=== PATIENT | male | born 1980 | race Caucasian/White ===

== ENCOUNTER 2021-06-16 20:44 | Inpatient (IN) | payer BC ==
[~2021-06-16] VITALS: Ht 195.6 cm; Wt 113.0 kg
[2021-06-16 22:53] LABS: BASO # 0.1 10^3/uL (0.0-0.2); BASO % 0.2 % (0.0-1.0); EOS % 0.1 % (0.0-3.0); HEMATOCRIT 50.1 % (42.0-52.0); HEMOGLOBIN 16.6 g/dl (13.5-17.5); LYMPH # 2.6 10^3/uL (1.5-5.0); MEAN CORPUSCULAR HEMOGLOBIN 29.3 pg (27.0-33.0); MEAN CORPUSCULAR HGB CONC 33.1 g/dl (32.0-36.5); MEAN CORPUSCULAR VOLUME 88.5 fl (80.0-96.0); MONO # 1.3 10^3/uL (0.0-0.8); MONO % 5.7 % (2.0-8.0); NEUTROPHILS # 19.5 10^3/uL (1.5-8.5); NEUTROPHILS % 82.3 % (36.0-66.0); PLATELET COUNT, AUTOMATED 224 10^3/uL (150-450); RED BLOOD COUNT 5.66 10^6/uL (4.30-6.10); WHITE BLOOD COUNT 23.6 10^3/uL (4.0-10.0)
[2021-06-16] MEDS ORDERED: NS 1,000 ML IV ONE ×2 (23:25→23:40)
[2021-06-16] MEDS ORDERED: ISOVUE-370 76% 100ML VIAL As Ordered ONE (23:26)
[2021-06-16 23:27] LABS: ALBUMIN 3.6 GM/DL (3.2-5.2); BILIRUBIN,DIRECT 0.5 MG/DL (0.0-0.2); BILIRUBIN,TOTAL 1.3 MG/DL (0.2-1.0); TOTAL PROTEIN 7.8 GM/DL (6.4-8.2)
[2021-06-16] MEDS ORDERED: PIPERACILLIN/TAZOBACTAM SOD 3.375 GM in D5W MINI-BAG PLUS 50 ML IV ONE (23:40)
[2021-06-16] MEDS ORDERED: MORPHINE 4 MG/ML 1ML VIAL/SYRINGE (J2270) IV ONE (23:45)
[2021-06-17] MEDS ORDERED: HOME MED LIST COMPLETE! XX SCH
--- NOTE | 2021-06-17 00:55 | REPVR ---
PROCEDURE INFORMATION: Exam: CT Abdomen And Pelvis With Contrast Exam date and time: 06/16/2021 11:22 PM Age: 41 years old Clinical indication: Abdominal pain; Localized; Lower; Additional info: Abd pain R/O appy TECHNIQUE: Imaging protocol: Computed tomography of the abdomen and pelvis with contrast. Radiation optimization: All CT scans at this facility use at least one of these dose optimization techniques: automated exposure control; mA and/or kV adjustment per patient size (includes targeted exams where dose is matched to clinical indication); or iterative reconstruction. Contrast material: ISO; Contrast volume: 100 ml; Contrast route: INTRAVENOUS (IV); COMPARISON: No relevant prior studies available. FINDINGS: Lungs: No suspicious mass or airspace process in the visualized lung bases. Liver: Liver is decreased in density, consistent with fatty infiltration. Gallbladder and bile ducts: Gallbladder is present and shows no evidence of gallstone. Pancreas: Pancreas appears normal. No focal mass or peripancreatic inflammation. Spleen: Spleen appears homogeneous without focal mass. Adrenal glands: Adrenal glands are normal in appearance. Kidneys and ureters: Kidneys appear normal, with no stone, solid mass or hydronephrosis. Stomach and bowel: Dilated left mid abdominal small bowel loops measure up to 3.6 cm in diameter without wall thickening. Adjacent mild mesenteric edema and tethering. No identifiable mass. Distal descending colon wall thickening, adjacent fat stranding and regional diverticula suggests acute diverticulitis with focal perforation evident by extraluminal air and adjacent stranding. No abscess Appendix: Normal caliber appendix is identified, with no adjacent inflammation. Intraperitoneal space: See "Stomach and bowel" finding. Vasculature: No aortic aneurysm. Main portal and splenic veins enhance normally. Lymph nodes: . No enlarged lymph nodes. Urinary bladder: Urinary bladder appears normal. Reproductive: No overt enlargement of the prostate gland. Bones/joints: Bony structures show no acute fracture or destructive process. Soft tissues: No concerning focal abnormality of the extra-abdominal and pelvic soft tissues. IMPRESSION: 1. Acute diverticulitis involving the distal descending colon with focal perforation but no abscess or obstruction. 2. Adjacent left lower quadrant mildly dilated small bowel loops which may be secondary inflammatory change from the perforated diverticulitis or could less likely be be a focal small bowel obstruction related to adhesions if the patient has had prior surgery. Electronically signed by: Jered Bolton On 06/17/2021 00:54:32 AM
[2021-06-17] MEDS ORDERED: LR 1,000 ML IV ONE (01:20)
--- NOTE | 2021-06-17 01:38 | HPEPDOC ---
[facility] Medical History & Physical Date of Admission Jun 17, 2021 Date of Service: Jun 17, 2021 Other Provider Rakan LEYVA Attending Physician: DIXON PLAZA MD History and Physical TIME OF SERVICE: 320am CHIEF COMPLAINT: abdominal pain HISTORY OF PRESENT ILLNESS: , a 41 yr old M, presented w c/o severe mid and lower abdominal pain that begun on Monday. The pain was associated with rectal pain that improved after having a BM. He denied having diarrhea or blood mixed with the stools but has had loose BMS. He also denied having a fever at home and has had chills. He had a similar episode of abdominal pain a few months ago that resolved on its own. He was sent to the hospital after being evaluated at an Urgent care center in [place]. CT of the abdomen revealed diverticulitis w perforation; Yoni Reese discussed these findings w who shaun mmended keeping the pt NPO. REVIEW OF SYSTEMS: 10-point review of systems negative except as listed in HPI PAST MEDICAL/ SURGICAL HISTORY: Tonsillectomy w adenoidectomy, unspecified dermatitis affecting the dorsal surface of the second digit. FAMILY HISTORY: he denied having any FMH SOCIAL HISTORY: he smokes, doesnt drink and doesnt use recreational drugs ALLERGIES: Please see below. HOME MEDICATIONS: Please see below. PHYSICAL EXAMINATION: Vital Signs Date Time Temp Pulse Resp B/P (MAP) Pulse Ox O2 Delivery O2 Flow Rate FiO2 06/16/21 20:45 100.1 138 16 140/79 (99) 96 Room Air GENERAL APPEARANCE: well-nourished and developed/ NAD HEENT: EOMI / MMM&P CARDIOVASCULAR: RRR/NMRG LUNGS: CTAB on RA ABDOMEN: contour convex/ no asher turners sign / no masses / soft & NT w light palpation MUSCULOSKELETAL: NCAT / RC x 4 extremities INTEGUMENT: he is not flushed or diaphoretic NEUROLOGICAL: CN 2-12 grossly intact / speech not dysarthric PSYCHIATRIC: A&O x 3 / able to understand and follow all commands LABORATORY DATA: Laboratory Tests 2 06/16/21 22:39: Immature Granulocyte % (Auto) 0.7, Neutrophils (%) (Auto) 82.3H, Lymphocytes (%) (Auto) 11.0L, Monocytes (%) (Auto) 5.7, Eosinophils (%) (Auto) 0.1, Basophils (%) (Auto) 0.2, Neutrophils # (Auto) 19.5H, Lymphocytes # (Auto) 2.6, Monocytes # (Auto) 1.3H, Eosinophils # (Auto) 0.0, Basophils # (Auto) 0.1, Nucleated Red Blood Cells % (auto) 0.0, Total Bilirubin 1.3H, Direct Bilirubin 0.5H, Aspartate Amino Transf (AST/SGOT) 9, Alanine Aminotransferase (ALT/SGPT) 33, Alkaline Phosphatase 91, Total Protein 7.8, Albumin 3.6, Albumin/Globulin Ratio 0.9, L ipase 29L 06/16/21 22:47: POC Glucose (Misc Panel) 104, POC Sodium (Misc Panel) 138, POC Potassium (Misc Panel) 3.6, POC Chloride (Misc Panel) 103, POC Total CO2 (Misc Panel) 19.0L, POC Blood Urea Nitrogen (Misc Panel 14, POC Ionized Calcium (Misc Panel) 4.7, POC Creatinine (Misc Panel) 1.1, POC Hematocrit (Misc Panel) 52.0H 06/16/21 23:47: Lactic Acid Level 1.6 IMAGING: CT abd/pelvis IMPRESSION: 1. Acute diverticulitis involving the distal descending colon with focal perforation but no abscess or obstruction. 2. Adjacent left lower quadrant mildly dilated small bowel loops which may be secondary inflammatory change from the perforated diverticulitis or could less likely be be a focal small bowel obstruction related to adhesions if the patient has had prior surgery. MICROBIOLOGY: Respiratory panel COVID PCR sent by Urgent Care in [place] was negative ASSESSMENT: is a 41 yr old who is admitted for sepsis 2/2 acute diverticulitis w perforation. PLAN: 1 Sepsis 2/2 Acute Diverticulitis w perforation -SIRS criteria include tachycardia and leukocytosis -Lactic acid is wnl Plan: NPO w IVF and FSBS q6H / NG to LIS / c/w IVF & Abx / f/u w Dr. 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
[2021-06-17] MEDS ORDERED: MAALOX 30 ML SUSP *UDC PO PRN (01:40)
[2021-06-17] MEDS ORDERED: MOM 30ML SUSPENSION UDC PO PRN (01:40)
--- OUTSIDE RECORDS SUMMARY | 2021-06-17 01:54 | CCD | Continuity of Care Document ---
Author Author Hawk COTO MD Organization Unknown Address [address], [address] [place] [address] Phone [phone] Care Team Providers Care Peanut Cleaner Name Role Phone Lanny Gan AUTM [phone] No PCP AUTM Unavailable Problems Description No Information Available Social History Type Date Description Comments Sex Unknown ETOH Use Rarely consumes beer Tobacco Use Start: Unknown Patient is a current smoker, smo kes every day 1/2 pack qd x 20 yrs Recreational Drug Use Denies Drug Use Smoking Status Reviewed: 06/07/21 Patient is a current smoker, smokes every day 1/2 pack qd x 20 yrs Allergies and adverse reactions Description No Known Drug Allergies Medications Active Medications SIG Qnty Indications Ordering Provide r Date Omeprazole 20mg Capsules DR 1 by mouth every day Unknown Aspirin Adult Low Dose 81mg Tablet s DR 1 by mouth every day Unknown Immunizations Description No Information Available Vital Signs Date Vital Result Comment 06/07/2021 12:56pm Height 77 inches 6'5" Weight 248.00 lb BMI (Body Mass Index) 29.4 kg/m2 BP Systolic 111 mmHg BP Diastolic 69 mmHg Heart Rate 108 /min Body Temperature 98.6 F Body Temperature 37.0 C Respiratory Rate 18 /min Results Description No Information Available Procedures Description No Information Available Medical Devices Description No Information Available Encounters Description No Information Available Assessments Date Code Description Provider 06/07/2021 D49.6 Neoplasm of brain Jered Coto MD 06/07/2021 M54.81 Cervico-occipital neuralgia Billy Coto MD Plan of Treatment 06/07/2021 - Jered Coto MD* D49.6 Neoplasm of brain* Comments:* I personally reviewed the imaging of his brain which demonstrates a nonenhancing 8 mm lesion in the wall of the fourth ventricle. I am not exactly sure what to make of this but do not think it is responsible for any of his headache or pain symptoms. It is unlikely related to his foot numbness.I do believe we should repeat an MRI of the brain 6 months from his initial scan, which would be in July 2021.We will have him return to the brain tumor clinic after an MRI brain tumor protocol at [facility]. * Follow up:* 2 months. MRI Brain WOW prior * M54.81 Cervico-occipital neuralgia* Comments:* Responsive to occipital blocks. His last block was in March 2021. The blocks typically 6 to 8 weeks.The concurrent start of this pain along with his left-sided avascular necrosis is concerning.He is scheduled to meet with a religion instructor. I think it is appropriate for him also to see a electronic parts designer. Functional Status Description No Information Available Mental Status Description No Information Available Referrals Description No Information Available
--- OUTSIDE RECORDS SUMMARY | 2021-06-17 01:54 | CCD ---
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 Name Role Phone Og Chew MD Unavailable Unavailable Og hCew MD Unavailable Unavailable Og Chew MD Unavailable Unavailable Og Chew MD Unavailable Unavailable Og Chew MD Unavailable Unavailable Og Chew MD Unavailable Unavailable Og Chew MD Unavailable Unavailable Og Chew MD Unavailable Unavailable Og Chew MD Unavailable Unavailable Og Chew MD Unavailable Unavailable Og Chew MD Unavailable Unavailable Og Chew MD Unavailable Unavailable Og Chew MD Unavailable Unavailable Og Chew MD Unavailable Unavailable Og Chew MD Unavailable Unavailable Og Chew MD Unavailable Unavailable Og Chew MD Unavailable Unavailable Og Chew MD Unavailable Unavailable Og Chew MD Unavailable Unavailable Og Chew MD Unavailable Unavailable Og Chew MD Unavailable Unavailable Og Chew MD Unavailable Unavailable Og Chew MD Unavailable Unavailable Og Chew MD Unavailable Unavailable Og Chew MD Unavailable Unavailable Og Chew MD Unavailable Unavailable Og Chew MD Unavailable Unavailable Og Chew MD Unavailable Unavailable Og Chew MD Unavailable Unavailable Og Chew MD Unavailable Unavailable Og Chew MD Unavailable Unavailable Og Chew MD Unavailable Unavailable Og Chew MD Unavailable Unavailable Og Chew MD Unavailable Unavailable Og Chew MD Unavailable Unavailable Og Chew MD Unavailable Unavailable Og Chew MD Unavailable Unavailable Greenky, S Jewel MD Unavailable Unavailable Greenky, S Jewel MD Unavailable Unavailable Greenky, S Jewel MD Unavailable Unavailable Greenky, S Jewel MD Unavailable Unavailable Greenky, S Jewel MD Unavailable Unavailable Greenky, S Jewel MD Unavailable Unavailable Greenky, S Jewel MD Unavailable Unavailable Greenky, S Jewel MD Unavailable Unavailable Greenky, S Jewel MD Unavailable Unavailable Greenky, S Jewel MD Unavailable Unavailable Greenky, S Jewel MD Unavailable Unavailable Greenky, S Jewel MD Unavailable Unavailable Greenky, S Jewel MD Unavailable Unavailable Greenky, S Jewel MD Unavailable Unavailable Greenky, S Jewel MD Unavailable Unavailable Greenky, S Jewel MD Unavailable Unavailable Greenky, S Jewel MD Unavailable Unavailable Greenky, S Jewel MD Unavailable Unavailable Greenky, S Jewel MD Unavailable Unavailable Greenky, S Jewel MD Unavailable Unavailable Greenky, S Jewel MD Unavailable Unavailable Greenky, S Jewel MD Unavailable Unavailable Greenky, S Jewel MD Unavailable Unavailable Greenky, S Jewel MD Unavailable Unavailable Greenky, S Jewel MD Unavailable Unavailable Greenky, S Jewel MD Unavailable Unavailable Greenky, S Jewel MD Unavailable Unavailable Greenky, S Jewel MD Unavailable Unavailable Greenky, S Jewel MD Unavailable Unavailable Greenky, S Jewel MD Unavailable Unavailable Greenky, S Jewel MD Unavailable Unavailable Greenky, S Jewel MD Unavailable Unavailable Greenky, S Jewel MD Unavailable Unavailable Greenky, S Jewel MD Unavailable Unavailable Greenky, S Jewel MD Unavailable Unavailable Greenky, S Jewel MD Unavailable Unavailable Greenky, S Jewel MD Unavailable Unavailable Greenky, S Jewel MD Unavailable Unavailable Greenky, S Jewel MD Unavailable Unavailable Greenky, S Jewel MD Unavailable Unavailable Greenky, S Jewel MD Unavailable Unavailable Greenky, S Jewel MD Unavailable Unavailable Greenky, S Jewel MD Unavailable Unavailable Greenky, S Jewel MD Unavailable Unavailable Greenky, S Jewel MD Unavailable Unavailable Greenky, S Jewel MD Unavailable Unavailable Greenky, S Jewel MD Unavailable Unavailable Greenky, S Jewel MD Unavailable Unavailable Greenky, S Jewel MD Unavailable Unavailable Greenky, S Jewel MD Unavailable Unavailable Greenky, S Jewel MD Unavailable Unavailable Og Chew Jewel MD Unavailable Unavailable Mazin Larson MD Unavailable UnavailMazin Austin MD Unavailable Unavailabl Mazin Stevenson MD Unavailable UnavailMazin Austin MD Unavailable Unavailabl e Weisenthal, Mazin Link MD Unavailable Unavailabl e Weisenthal, Mazin Link MD Unavailable Unavailabl e Weisenthal, Mazin Link MD Unavailable Unavailabl e Weisenthal, Mazin Link MD Unavailable Unavailabl e Weisenthal, Mazin Link MD Unavailable Unavailabl e Weisensantiago, Mazin Link MD Unavailable Unavailabl e Weisenthal, Mazin Link MD Unavailable Unavailabl e Weisensantiago, Mazin Link MD Unavailable Unavailabl e Weisenthal, Mazin Link MD Unavailable Unavailabl e Weisenthal, Mazin Link MD Unavailable Unavailabl e Weisenthal, Mazin Link MD Unavailable Unavailabl e Weisenthal, Mazin Link MD Unavailable Unavailabl e Weisenthal, Mazin Link MD Unavailable Unavailabl e Weisenthal, Mazin Link MD Unavailable Unavailabl e Weisenthal, Mazin Link MD Unavailable Unavailabl e Weisenthal, Mazin Link MD Unavailable Unavailabl e Weisenthal, Mazin Link MD Unavailable Unavailabl e Weisenthal, Mazin Link MD Unavailable Unavailabl e Weisenthal, Mazin Link MD Unavailable Unavailabl e Weisenthal, Mazin Link MD Unavailable Unavailabl e Weisenthal, Mazin Link MD Unavailable Unavailabl e Weisenthal, Mazin Link MD Unavailable Unavailabl e Weisenthal, Mazin Link MD Unavailable Unavailabl e Weisenthal, Mazin Link MD Unavailable Unavailabl e Guillaumesenthal, Mazin Link MD Unavailable Unavailabl e Weisenthal, Mazin Link MD Unavailable Unavailabl e Weisenthal, Mazin Link MD Unavailable Unavailabl e Weisenthal, Mazin Link MD Unavailable Unavailabl e Weisenthal, Mazin Link MD Unavailable Unavailabl e Weisensantiago, Mazin Link MD Unavailable Unavailabl e Guillaumesensantiago, Mazin Link MD Unavailable Unavailabl e Weisenthal, Mazin Link MD Unavailable Unavailabl e Weisensantiago, Mazin Link MD Unavailable Unavailabl e Weisenthal, Mazin Link MD Unavailable Unavailabl e Weisenthal, Mazin Link MD Unavailable Unavailabl e Weisenthal, Mazin Link MD Unavailable Unavailabl e Weisensantiago, Mazin Link MD Unavailable Unavailabl e Weisensantiago, Mazin Link MD Unavailable Unavailabl e Weisensantiago, Mazin Link MD Unavailable Unavailabl e Weisensantiago, Mazin Link MD Unavailable Unavailabl e Guillaumesensantiago, Mazin Link MD Unavailable Unavailabl e Guillaumesensantiago, Mazin Link MD Unavailable Unavailabl e Guillaumesensantiago, Mazin Link MD Unavailable Unavailabl e Weisensantiago, Mazin Link MD Unavailable Unavailabl e Weisenthal, Mazin Link MD Unavailable Unavailabl e Weisenthal, Mazin Link MD Unavailable Unavailabl e Weisensantiago, Mazin Link MD Unavailable Unavailabl e Weisensantiago, Mazin Link MD Unavailable Unavailabl e Weisensantiago, Mazin Link MD Unavailable Unavailabl e Weisensantiago, Mazin Link MD Unavailable Unavailabl e Weisensantiago, Mazin Link MD Unavailable Unavailabl e Weisensantiago, Mazin Link MD Unavailable Unavailabl e Weisensantiago, Mazin Link MD Unavailable Unavailabl e Weisenthal, Mazin Link MD Unavailable Unavailabl e Weisensantiago, Mazin Link MD Unavailable Unavailabl e Weisenthal, Mazin Link MD Unavailable Unavailabl e Weisenthal, Mazin Link MD Unavailable Unavailabl e Weisenthal, Mazin Link MD Unavailable Unavailabl e Weisenthal, Mazin Link MD Unavailable Unavailabl e Weisenthal, Mazin Link MD Unavailable Unavailabl e Weisenthal, Mazin Link MD Unavailable Unavailabl e Weisenthal, Mazin Link MD Unavailable Unavailabl e Weisensantiago, Mazin Link MD Unavailable Unavailabl e Weisensantiago, Mazin Link MD Unavailable Unavailabl e Weisensantiago, Mazin Link MD Unavailable Unavailabl e Weisensantiago, Mazin Link MD Unavailable Unavailabl e Weisensantiago, Mazin Link MD Unavailable Unavailabl e Guillaumesensantiago, Mazin Link MD Unavailable Unavailabl e Guillaumesensantiago, Mazin Link MD Unavailable Unavailabl e Guillaumesensantiago, Mazin Link MD Unavailable Unavailabl e Matthias Helms MD Unavailable Unavailable Matthias Helms MD Unavailable Unavailable Matthias Helms MD Unavailable Unavailable Matthias Helms MD Unavailable Unavailable Matthias Helms MD Unavailable Unavailable Matthias Helms MD Unavailable Unavailable Matthias Helms MD Unavailable Unavailable Matthias Helms MD Unavailable Unavailable Matthias Helms MD Unavailable Unavailable Matthias Helms MD Unavailable Unavailable Matthias Helms MD Unavailable Unavailable Matthias Helms MD Unavailable Unavailable Matthias Helms MD Unavailable Unavailable Matthias Helms MD Unavailable Unavailable Matthias Helms MD Unavailable Unavailable Matthias Helms MD Unavailable Unavailable Matthias Helms MD Unavailable Unavailable Matthias Helms MD Unavailable Unavailable Matthias Helms MD Unavailable Unavailable Matthias Helms MD Unavailable Unavailable Matthias Helms MD Unavailable Unavailable Matthias Helms MD Unavailable Unavailable Matthias Helms MD Unavailable Unavailable Matthias Helms MD Unavailable Unavailable Matthias Helms MD Unavailable Unavailable Matthias Helms MD Unavailable Unavailable Matthias Helms MD Unavailable Unavailable Matthias Helms MD Unavailable Unavailable TisMatthias pena MD Unavailable Unavailable TisMatthias pena MD Unavailable Unavailable TisoMatthias MD Unavailable Unavailable TisoMatthias MD Unavailable Unavailable TisoMatthias MD Unavailable Unavailable TisoMatthias MD Unavailable Unavailable TisoMatthias MD Unavailable Unavailable TisoMatthias MD Unavailable Unavailable TisoMatthias MD Unavailable Unavailable TisMatthias pena MD Unavailable Unavailable TisoMatthias MD Unavailable Unavailable TisoMatthias MD Unavailable Unavailable TisoMatthias MD Unavailable Unavailable TisoMatthias MD Unavailable Unavailable TisoMatthias MD Unavailable Unavailable TisMatthias pena MD Unavailable Unavailable TisMatthias pena MD Unavailable Unavailable TisMatthias pena MD Unavailable Unavailable TisoMatthias MD Unavailable Unavailable TisoMatthias MD Unavailable Unavailable TisoMatthisa MD Unavailable Unavailable TisoMatthias MD Unavailable Unavailable TisMatthias pena MD Unavailable Unavailable TisMatthias pena MD Unavailable Unavailable TisMatthias pena MD Unavailable Unavailable TisMatthias pena MD Unavailable Unavailable TisMatthias pena MD Unavailable Unavailable TisMatthias pena MD Unavailable Unavailable TisMatthias pena MD Unavailable Unavailable TisMatthias pena MD Unavailable Unavailable TisMatthias pena MD Unavailable Unavailable TisMatthias pena MD Unavailable Unavailable TisMatthias pena MD Unavailable Unavailable TisMatthias pena MD Unavailable Unavailable Oksana MANCILLA MD Unavailable Unavailable Oksana MANCILLA MD Unavailable Unavailable Oksana MANCILLA MD Unavailable Unavailable Oksana MANCILLA MD Unavailable Unavailable Oksana MANCILLA MD Unavailable Unavailable Oksana MANCILLA MD Unavailable Unavailable Oksana MANCILLA MD Unavailable Unavailable Oksana MANCILLA MD Unavailable Unavailable Oksana MANCILLA MD Unavailable Unavailable Oksana MANCILLA MD Unavailable Unavailable Oksana MANCILLA MD Unavailable Unavailable Oksana MANCILLA MD Unavailable Unavailable Oksana MANCILLA MD Unavailable Unavailable Oksana MANCILLA MD Unavailable Unavailable Oksana MANCILLA MD Unavailable Unavailable Oksana MANCILLA MD Unavailable Unavailable Oksana MANCILLA MD Unavailable Unavailable Oksana MANCILLA MD Unavailable Unavailable Oksana MANCILLA MD Unavailable Unavailable Oksana MANCILLA MD Unavailable Unavailable Oksana MANCILLA MD Unavailable Unavailable Oksana MANCILLA MD Unavailable Unavailable Oksana MANCILLA MD Unavailable Unavailable Oksana MANCILLA MD Unavailable Unavailable Oksana MANCILLA MD Unavailable Unavailable Oksana MANCILLA MD Unavailable Unavailable Oksana MANCILLA MD Unavailable Unavailable Oksana MANCILLA MD Unavailable Unavailable Oksana MANCILLA MD Unavailable Unavailable Oksana MANCILLA MD Unavailable Unavailable Oksana MANCILLA MD Unavailable Unavailable Oksana MANCILLA MD Unavailable Unavailable Oksana MANCILLA MD Unavailable Unavailable Oksana MANCILLA MD Unavailable Unavailable Oksana MANCILLA MD Unavailable Unavailable Oksana MANCILLA MD Unavailable Unavailable Oksana MANCILLA MD Unavailable Unavailable Oksana MANCILLA MD Unavailable Unavailable Oksana MANCILLA MD Unavailable Unavailable Oksana MANCILLA MD Unavailable Unavailable Oksana MANCILLA MD Unavailable Unavailable Oksana MANCILLA MD Unavailable Unavailable Oksana MANCILLA MD Unavailable Unavailable Oksana MANCILLA MD Unavailable Unavailable Oksana MANCILLA MD Unavailable Unavailable Oksana MANCILLA MD Unavailable Unavailable Oksana MANCILLA MD Unavailable Unavailable Oksana MANCILLA MD Unavailable Unavailable Oksana MANCILLA MD Unavailable Unavailable Oksana MANCILLA MD Unavailable Unavailable Oksana MANCILLA MD Unavailable Unavailable Oksana MANCILLA MD Unavailable Unavailable Oksana MANCILLA MD Unavailable Unavailable Oksana MANCILLA MD Unavailable Unavailable Oksana MANCILLA MD Unavailable Unavailable Oksana MANCILLA MD Unavailable Unavailable Oksana MANCILLA MD Unavailable Unavailable Oksana MANCILLA MD Unavailable Unavailable Oksana MANCILLA MD Unavailable Unavailable Oksana MANCILLA MD Unavailable Unavailable Oksana MANCILLA MD Unavailable Unavailable Oksana MANCILLA MD Unavailable Unavailable Oksana MANCILLA MD Unavailable Unavailable Oksana MANCILLA MD Unavailable Unavailable Oksana MANCILLA MD Unavailable Unavailable Oksana MANCILLA MD Unavailable Unavailable Oksana MANCILLA MD Unavailable Unavailable Oksana MANCILLA MD Unavailable Unavailable Oksana MANCILLA MD Unavailable Unavailable Oksana MANCILLA MD Unavailable Unavailable Oksana MANCILLA MD Unavailable Unavailable Oksana MANCILLA MD Unavailable Unavailable Oksana MANCILLA MD Unavailable Unavailable Oksana MANCILLA MD Unavailable Unavailable Oksana MANCILLA MD Unavailable Unavailable Oksana MANCILLA MD Unavailable Unavailable Oksana MANCILLA MD Unavailable Unavailable Oksana MANCILLA MD Unavailable Unavailable Oksana MANCILLA MD Unavailable Unavailable Oksana MANCILLA MD Unavailable Unavailable Oksana MANCILLA MD Unavailable Unavailable Oksana MANCILLA MD Unavailable Unavailable Oskana MANCILLA MD Unavailable Unavailable Oksana MANCILLA MD Unavailable Unavailable Oksana MANCILLA MD Unavailable Unavailable Oksana MANCILLA MD Unavailable Unavailable Oksana MANCILLA MD Unavailable Unavailable Oksana MANCILLA MD Unavailable Unavailable Oksana MANCILLA MD Unavailable Unavailable Oksana MANCILLA MD Unavailable Unavailable Oksana MANCILLA MD Unavailable Unavailable Oksana MANCILLA MD Unavailable Unavailable Oksana MANCILLA MD Unavailable Unavailable Oksana MANCILLA MD Unavailable Unavailable Chelsea JIANG MD Unavailable Unavailable Chelsea JIANG MD Unavailable Unavailable Chelsea JIANG MD Unavailable Unavailable Chelsea JIANG MD Unavailable Unavailable Chelsea JIANG MD Unavailable Unavailable Chelsea JIANG MD Unavailable Unavailable Chelsea JIANG MD Unavailable Unavailable Chelsea JIANG MD Unavailable Unavailable Chelsea JIANG MD Unavailable Unavailable hCelsea JIANG MD Unavailable Unavailable Chelsea JIANG MD Unavailable Unavailable Chelsea JIANG MD Unavailable Unavailable Chelsea JIANG MD Unavailable Unavailable Chelsea JIANG MD Unavailable Unavailable Chelsea JIANG MD Unavailable Unavailable Chelsea JIANG MD Unavailable Unavailable Chelsea JIANG MD Unavailable Unavailable Chelsea JIANG MD Unavailable Unavailable Chelsea JIANG MD Unavailable Unavailable Chelsea JIANG MD Unavailable Unavailable Chelsea JIANG MD Unavailable Unavailable Chelsea JIANG MD Unavailable Unavailable Chelsea JIANG MD Unavailable Unavailable Chelsea JIANG MD Unavailable Unavailable Chelsea JIANG MD Unavailable Unavailable Chelsea JIANG MD Unavailable Unavailable Chelsea JIANG MD Unavailable Unavailable Chelsea JIANG MD Unavailable Unavailable Chelsea JIANG MD Unavailable Unavailable Chelsea JIANG MD Unavailable Unavailable Chelsea JIANG MD Unavailable Unavailable Chelsea JIANG MD Unavailable Unavailable Chelsea JIANG MD Unavailable Unavailable Chelsea JIANG MD Unavailable Unavailable Chelsea JIANG MD Unavailable Unavailable Chelsea JIANG MD Unavailable Unavailable Chelsea JIANG MD Unavailable Unavailable Chelsea JIANG MD Unavailable Unavailable Chelsea JIANG MD Unavailable Unavailable Chelsea JIANG MD Unavailable Unavailable Chelsea JIANG MD Unavailable Unavailable Chelsea JIANG MD Unavailable Unavailable Chelsea JIANG MD Unavailable Unavailable Chelsea JIANG MD Unavailable Unavailable Chelsea JIANG MD Unavailable Unavailable Chelsea JIANG MD Unavailable Unavailable Chelsea JIANG MD Unavailable Unavailable Chelsea JIANG MD Unavailable Unavailable Chelsea JIANG MD Unavailable Unavailable Chelsea JIANG MD Unavailable Unavailable Chelsea JIANG MD Unavailable Unavailable Chelsea JIANG MD Unavailable Unavailable Chelsea JIANG MD Unavailable Unavailable Chelsea JIANG MD Unavailable Unavailable Chelsea JIANG MD Unavailable Unavailable Chelsea JIANG MD Unavailable Unavailable Chelsea JIANG MD Unavailable Unavailable Chelsea JIANG MD Unavailable Unavailable Chelsea JIANG MD Unavailable Unavailable Chelsea JIANG MD Unavailable Unavailable Chelsea JIANG MD Unavailable Unavailable Chelsea JIANG MD Unavailable Unavailable Chelsea JIANG MD Unavailable Unavailable Chelsea JIANG MD Unavailable Unavailable Chelsea JIANG MD Unavailable Unavailable Chelsea JIANG MD Unavailable Unavailable Chelsea JIAGN MD Unavailable Unavailable Chelsea JIANG MD Unavailable Unavailable Chelsea JIANG MD Unavailable Unavailable Chelsea JIANG MD Unavailable Unavailable Chelsea JIANG MD Unavailable Unavailable Chelsea JIANG MD Unavailable Unavailable Chelsea JIANG MD Unavailable Unavailable Chelsea JIANG MD Unavailable Unavailable Chelsea JIANG MD Unavailable Unavailable Chelsea JIANG MD Unavailable Unavailable Chelsea JIANG MD Unavailable Unavailable Chelsea JIANG MD Unavailable Unavailable Chelsea JIANG MD Unavailable Unavailable Chelsea JIANG MD Unavailable Unavailable Chelsea JIANG MD Unavailable Unavailable Chelsea JIANG MD Unavailable Unavailable Chelsea JIANG MD Unavailable Unavailable Chelsea JIANG MD Unavailable Unavailable VanArnam JR, W Abelino PA Unavailable Unavailable VanArnam JR, W Abelino PA Unavailable Unavailable VanArnam JR, W Abelino PA Unavailable Unavailable VanArnam JR, W Abelino PA Unavailable Unavailable VanArnam JR, W Abelino PA Unavailable Unavailable VanArnam JR, W Abelino PA Unavailable Unavailable VanArnam JR, W Abelino PA Unavailable Unavailable VanArnam JR, W Abelino PA Unavailable Unavailable VanArnam JR, W Abelino PA Unavailable Unavailable VanArnam JR, W Abelino PA Unavailable Unavailable VanArnam JR, W Abelino PA Unavailable Unavailable VanArnam JR, W Abelino PA Unavailable Unavailable VanArnam JR, W Abelino PA Unavailable Unavailable VanArnam JR, W Abelino PA Unavailable Unavailable VanArnam JR, W Abelino PA Unavailable Unavailable VanArnam JR, W Abelino PA Unavailable Unavailable VanArnam JR, W Abelino PA Unavailable Unavailable VanArnam JR, W Abelino PA Unavailable Unavailable VanArnam JR, W Abelino PA Unavailable Unavailable VanArnam JR, W Abelino PA Unavailable Unavailable VanArnam JR, W Abelino PA Unavailable Unavailable VanArnam JR, W Abelino PA Unavailable Unavailable VanArnam JR, W Abelino PA Unavailable Unavailable VanArnam JR, W Abelino PA Unavailable Unavailable VanArnam JR, W Abelino PA Unavailable Unavailable VanArnam JR, W Abelino PA Unavailable Unavailable VanArnam JR, W Abelino PA Unavailable Unavailable VanArnam JR, W Abelino PA Unavailable Unavailable VanArnam JR, W Abelino PA Unavailable Unavailable VanArnam JR, W Abelino PA Unavailable Unavailable VanArnam JR, W Abelino PA Unavailable Unavailable VanArnam JR, W Abelino PA Unavailable Unavailable VanArnam JR, W Abelino PA Unavailable Unavailable VanArnam JR, W Abelino PA Unavailable Unavailable VanArnam JR, W Abelino PA Unavailable Unavailable VanArnam JR, W Abelino PA Unavailable Unavailable VanArnam JR, W Abelino PA Unavailable Unavailable VanArnam JR, W Abelino PA Unavailable Unavailable VanArnam JR, W Abelino PA Unavailable Unavailable VanArnam JR, W Abelino PA Unavailable Unavailable VanArnam JR, W Abelino PA Unavailable Unavailable VanArnam JR, W Abelino PA Unavailable Unavailable VanArnam JR, W Abelino PA Unavailable Unavailable Gan, D Lanny ACADEMIC ADMINISTRATOR Unavailable Unavailable Gan, D Lanny ACADEMIC ADMINISTRATOR Unavailable Unavailable Gan, D Lanny ACADEMIC ADMINISTRATOR Unavailable Unavailable Gan, D Lanny ACADEMIC ADMINISTRATOR Unavailable Unavailable Gan, D Lanny ACADEMIC ADMINISTRATOR Unavailable Unavailable Gan, D Lanny ACADEMIC ADMINISTRATOR Unavailable Unavailable Gan, D Lanny ACADEMIC ADMINISTRATOR Unavailable Unavailable Gan, D Lanny ACADEMIC ADMINISTRATOR Unavailable Unavailable Gan, D Lanny ACADEMIC ADMINISTRATOR Unavailable Unavailable Gan, D Lanny ACADEMIC ADMINISTRATOR Unavailable Unavailable Gan, D Lanny ACADEMIC ADMINISTRATOR Unavailable Unavailable Gan, D Lanny ACADEMIC ADMINISTRATOR Unavailable Unavailable Gan, D Lanny ACADEMIC ADMINISTRATOR Unavailable Unavailable Gan, D Lanny ACADEMIC ADMINISTRATOR Unavailable Unavailable Gan, D Lanny ACADEMIC ADMINISTRATOR Unavailable Unavailable Gan, D Lanny ACADEMIC ADMINISTRATOR Unavailable Unavailable Gan, D Lanny ACADEMIC ADMINISTRATOR Unavailable Unavailable Gan, D Lanny ACADEMIC ADMINISTRATOR Unavailable Unavailable Gan, D Lanny ACADEMIC ADMINISTRATOR Unavailable Unavailable Gan, D Lanny ACADEMIC ADMINISTRATOR Unavailable Unavailable Gan, D Lanny ACADEMIC ADMINISTRATOR Unavailable Unavailable Gan, D Lanny ACADEMIC ADMINISTRATOR Unavailable Unavailable Gan, D Lanny ACADEMIC ADMINISTRATOR Unavailable Unavailable Gan, D Lanny ACADEMIC ADMINISTRATOR Unavailable Unavailable Gan, D Lanny ACADEMIC ADMINISTRATOR Unavailable Unavailable Gan, D Lanny ACADEMIC ADMINISTRATOR Unavailable Unavailable Gan, D Lanny ACADEMIC ADMINISTRATOR Unavailable Unavailable Gan, D Lanny ACADEMIC ADMINISTRATOR Unavailable Unavailable Gan, D Lanny ACADEMIC ADMINISTRATOR Unavailable Unavailable Gan, D Lanny ACADEMIC ADMINISTRATOR Unavailable Unavailable Gan, D Lanny ACADEMIC ADMINISTRATOR Unavailable Unavailable Gan, D Lanny ACADEMIC ADMINISTRATOR Unavailable Unavailable Gan, D Lanny ACADEMIC ADMINISTRATOR Unavailable Unavailable Gan, D Lanny ACADEMIC ADMINISTRATOR Unavailable Unavailable Gan, D Lanny ACADEMIC ADMINISTRATOR Unavailable Unavailable Gan, D Lanny ACADEMIC ADMINISTRATOR Unavailable Unavailable Gan, D Lanny ACADEMIC ADMINISTRATOR Unavailable Unavailable Gan, D Lanny ACADEMIC ADMINISTRATOR Unavailable Unavailable Gan, D Lanny ACADEMIC ADMINISTRATOR Unavailable Unavailable Gan, D Lanny ACADEMIC ADMINISTRATOR Unavailable Unavailable Gan, D Lanny ACADEMIC ADMINISTRATOR Unavailable Unavailable Gan, D Lanny ACADEMIC ADMINISTRATOR Unavailable Unavailable Gan, D Lanny ACADEMIC ADMINISTRATOR Unavailable Unavailable Gan, D Lanny ACADEMIC ADMINISTRATOR Unavailable Unavailable Oksana OSUNA MD Unavailable Unavailable Oksana OSUNA MD Unavailable Unavailable Oksana OSUNA MD Unavailable Unavailable Oksana OSUNA MD Unavailable Unavailable Oksana OSUNA MD Unavailable Unavailable Oksana OSUNA MD Unavailable Unavailable Oksana OSUNA MD Unavailable Unavailable Oksana OSUNA MD Unavailable Unavailable Oksana OSUNA MD Unavailable Unavailable Oksana OSUNA MD Unavailable Unavailable Oksana OSUNA MD Unavailable Unavailable Oksana OSUNA MD Unavailable Unavailable Oksana OSUNA MD Unavailable Unavailable Oksana OSUNA MD Unavailable Unavailable Oksana OSUNA MD Unavailable Unavailable Oksana OSUNA MD Unavailable Unavailable Oksana OSUNA MD Unavailable Unavailable Oksana OSUNA MD Unavailable Unavailable Oksana OSUNA MD Unavailable Unavailable Oksana OSUNA MD Unavailable Unavailable Oksana OSUNA MD Unavailable Unavailable Oksana OSUNA MD Unavailable Unavailable Oksana OSUNA MD Unavailable Unavailable Oksana OSUNA MD Unavailable Unavailable Oksana OSUNA MD Unavailable Unavailable Oksana OSUNA MD Unavailable Unavailable Oksana OSUNA MD Unavailable Unavailable Oksana OSUNA MD Unavailable Unavailable Oksana OSUNA MD Unavailable Unavailable ENRRIQUE, Oksana STAHL MD Unavailable Unavailable ENRRIQUE, Oksana STAHL MD Unavailable Unavailable ENRRIQUE, Oksana STAHL MD Unavailable Unavailable ENRRIQUE, Oksana STAHL MD Unavailable Unavailable ENRRIQUE, Oksana STAHL MD Unavailable Unavailable ENRRIQUE, Oksana STAHL MD Unavailable Unavailable ENRRIQUE, Oksana STAHL MD Unavailable Unavailable ENRRIQUE, Oksana STAHL MD Unavailable Unavailable ENRRIQUE, Oksana STAHL MD Unavailable Unavailable ENRRIQUE, Oksana STAHL MD Unavailable Unavailable ENRRIQUE, Oksana STAHL MD Unavailable Unavailable ENRRIQUE, Oksana STAHL MD Unavailable Unavailable ENRRIQUE, Oksana STAHL MD Unavailable Unavailable ENRRIQUE, Oksana STAHL MD Unavailable Unavailable ENRRIQUE, Oksana STAHL MD Unavailable Unavailable ENRRIQUE, Oksana STAHL MD Unavailable Unavailable ENRRIQUE, Oksana STAHL MD Unavailable Unavailable ENRRIQUE, Oksana STAHL MD Unavailable Unavailable ENRRIQUE, Oksana STAHL MD Unavailable Unavailable ENRRIQUE, Oksana STAHL MD Unavailable Unavailable ENRRIQUE, Oksana STAHL MD Unavailable Unavailable ENRRIQUE, Oksana STAHL MD Unavailable Unavailable ENRRIQUE, Oksana STAHL MD Unavailable Unavailable ENRRIQUE, Oksana STAHL MD Unavailable Unavailable ENRRIQUE, Oksana STAHL MD Unavailable Unavailable ENRRIQUE, Oksana STAHL MD Unavailable Unavailable ENRRIQUE, Oksana STAHL MD Unavailable Unavailable ENRRIQUE, Oksana STAHL MD Unavailable Unavailable ENRRIQUE, Oksana STAHL MD Unavailable Unavailable ENRRIQUE, Oksana STAHL MD Unavailable Unavailable ENRRIQUE, Oksana STAHL MD Unavailable Unavailable ENRRIQUE, Oksana STAHL MD Unavailable Unavailable ENRRIQUE, Oksana STAHL MD Unavailable Unavailable ENRRIQUE, Oksana STAHL MD Unavailable Unavailable ENRRIQUE, Oksana STAHL MD Unavailable Unavailable ENRRIQUE, Oksana STAHL MD Unavailable Unavailable ENRRIQUE, Oksana STAHL MD Unavailable Unavailable ENRRIQUE, Oksana STAHL MD Unavailable Unavailable ENRRIQUE, Oksana STAHL MD Unavailable Unavailable ENRRIQUE, Oksana STAHL MD Unavailable Unavailable ENRRIQUE, Oksana STAHL MD Unavailable Unavailable ENRRIQUE, Oksana STAHL MD Unavailable Unavailable ENRRIQUE, Oksana STAHL MD Unavailable Unavailable ENRRIQUE, Oksana STAHL MD Unavailable Unavailable ENRRIQUE, Oksana STAHL MD Unavailable Unavailable ENRRIQUE, Oksana STAHL MD Unavailable Unavailable ENRRIQUE, Oksana STAHL MD Unavailable Unavailable ENRRIQUE, Oksana STAHL MD Unavailable Unavailable ENRRIQUE, Oksana STAHL MD Unavailable Unavailable ENRRIQUE, Oksana STAHL MD Unavailable Unavailable ENRRIQUE, Oksana STAHL MD Unavailable Unavailable ENRRIQUE, Oksana STAHL MD Unavailable Unavailable ENRRIQUE, Oksana STAHL MD Unavailable Unavailable ENRRIQUE, Oksana STAHL MD Unavailable Unavailable Evette Riggins Unavailable Unavailable Vaishnavi, A Rakan PA Unavailable Unavailable Vaishnavi, A Rakan PA Unavailable Unavailable Vaishnavi, A Rakan PA Unavailable Unavailable Vaishnavi, A Rakan PA Unavailable Unavailable Vaishnavi, A Rakan PA Unavailable Unavailable Vaishnavi, A Rakan PA Unavailable Unavailable Vaishnavi, A Rakan PA Unavailable Unavailable Vaishnavi, A Rakan PA Unavailable Unavailable Vaishnavi, A Rakan PA Unavailable Unavailable Vaishnavi, A Rakan PA Unavailable Unavailable Vaishnavi, A Rakan PA Unavailable Unavailable Vaishnavi, A Rakan PA Unavailable Unavailable Vaishnavi, A Rakan PA Unavailable Unavailable Vaishnavi, A Rakan PA Unavailable Unavailable Vaishnavi, A Rakan PA Unavailable Unavailable Vaishnavi, A Rakan PA Unavailable Unavailable Vaishnavi, A Rakan PA Unavailable Unavailable Vaishnavi, A Rakan PA Unavailable Unavailable Vaishnavi, A Rakan PA Unavailable Unavailable Vaishnavi, A Rakan PA Unavailable Unavailable Vaishnavi, A Rakan PA Unavailable Unavailable Vaishnavi, A Rakan PA Unavailable Unavailable Vaishnavi, A Rakan PA Unavailable Unavailable Vaishnavi, A Rakan PA Unavailable Unavailable Vaishnavi, A Rakan PA Unavailable Unavailable Vaishnavi, A Rakan PA Unavailable Unavailable Vaishnavi, A Rakan PA Unavailable Unavailable Vaishnavi, A Rakan PA Unavailable Unavailable Vaishnavi, A Rakan PA Unavailable Unavailable Vaishnavi, A Rakan PA Unavailable Unavailable Vaishnavi, A Rakan PA Unavailable Unavailable Vaishnavi, A Rakan PA Unavailable Unavailable Vaishnavi, A Rakan PA Unavailable Unavailable Vaishnavi, A Rakan PA Unavailable Unavailable Vaishnavi, A Rakan PA Unavailable Unavailable Vaishnavi, A Rakan PA Unavailable Unavailable Vaishnavi, A Rakan PA Unavailable Unavailable Vaishnavi, A Rakan PA Unavailable Unavailable Vaishnavi, A Rakan PA Unavailable Unavailable Vaishnavi, A Rakan PA Unavailable Unavailable Vaishnavi, A Rakan PA Unavailable Unavailable Vaishnavi, A Rakan PA Unavailable Unavailable Vaishnavi, A Rakan PA Unavailable Unavailable Vaishnavi, A Rakan PA Unavailable Unavailable Vaishnavi, A Rakan PA Unavailable Unavailable Vaishnavi, A Rakan PA Unavailable Unavailable Vaishnavi, A Rakan PA Unavailable Unavailable Vaishnavi, A Rakan PA Unavailable Unavailable Vaishnavi, A Rakan PA Unavailable Unavailable Vaishnavi, A Rakan PA Unavailable Unavailable Vaishnavi, A Rakan PA Unavailable Unavailable Vaishnavi, A Rakan PA Unavailable Unavailable Vaishnavi, A Rakan PA Unavailable Unavailable Vaishnavi, A Rakan PA Unavailable Unavailable Vaishnavi, A Rakan PA Unavailable Unavailable Vaishnavi, A Rakan PA Unavailable Unavailable Vaishnavi, A Rakan PA Unavailable Unavailable Vaishnavi, A Rakan PA Unavailable Unavailable Vaishnavi, A Rakan PA Unavailable Unavailable Vaishnavi, A Rakan PA Unavailable Unavailable Vaishnavi, A Rakan PA Unavailable Unavailable Vaishnavi, A Rakan PA Unavailable Unavailable Vaishnavi, A Rakan PA Unavailable Unavailable Vaishnavi, A Rakan PA Unavailable Unavailable Vaishnavi, A Rakan PA Unavailable Unavailable Vaishnavi, A Rakan PA Unavailable Unavailable Vaishnavi, A Rakan PA Unavailable Unavailable Vaishnavi, A Rakan PA Unavailable Unavailable Vaishnavi, A Rakan PA Unavailable Unavailable Vaishnavi, A Rakan PA Unavailable Unavailable Vaishnavi, A Rakan PA Unavailable Unavailable Vaishnavi, A Rakan PA Unavailable Unavailable Vaishnavi, A Rakan PA Unavailable Unavailable Vaishnavi, A Rakan PA Unavailable Unavailable Patriarco, D Jerson DC Unavailable Unavailable Patriarco, D Jerson DC Unavailable Unavailable Patriarco, D Jerson DC Unavailable Unavailable Patriarco, D Jerson DC Unavailable Unavailable Patriarco, D Jerson DC Unavailable Unavailable Patriarco, D Jerson DC Unavailable Unavailable Patriarco, D Jerson DC Unavailable Unavailable Patriarco, D Jerson DC Unavailable Unavailable Patriarco, D Jerson DC Unavailable Unavailable Patriarco, D Jerson DC Unavailable Unavailable Patriarco, D Jerson DC Unavailable Unavailable Patriarco, D Jerson DC Unavailable Unavailable Re-disclosure Warning The records that you are about to access may contain information from federally-assisted alcohol or drug abuse programs. If such information is present, then the following federally mandated warning applies: This information has been disclosed to you from records protected by federal confidentiality rules (42 CFR part 2). The federal rules prohibit you from making any further disclosure of this information unless further disclosure is expressly permitted by the written consent of the person to whom it pertains or as otherwise permitted by 42 CFR part 2. A general authorization for the release of medical or other information is NOT sufficient for this purpose. The Federal rules restrict any use of the information to criminally investigate or prosecute any alcohol or drug abuse patient.The records that you are about to access may contain highly sensitive health information, the redisclosure of which is protected by Article 27-F of the [facility] Public Health law. If you continue you may have access to information: Regarding HIV / AIDS; Provided by facilities licensed or operated by the [facility] Office of Mental Health; or Provided by the [facility] Office for People With Developmental Disabilities. If such information is present, then the following [facility] mandated warning applies: This information has been disclosed to you from confidential records which are protected by state law. State law prohibits you from making any further disclosure of this information without the specific written consent of the person to whom it pertains, or as otherwise permitted by law. Any unauthorized further disclosure in violation of state law may result in a fine or senior care sentence or both. A general authorization for the release of medical or other information is NOT sufficient authorization for further disc losure. 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 Expiration date unspecified Myriam Prabhakar completed [facility] Allergies and Adverse Reactions Type Description Substance Reaction Status Data Source(s ) Allergy Allergy No Known Drug Allergies Active A [facility]) Drug Allergy Drug Allergy [facility]) Encounters Encounter Providers Location Date Indications Data Source(s ) Outpatient Referrer: FAVIO OSUNA MD 05/28/2021 10:04:07 AM EDT [facility] Outpatient Attender: FAVIO OSUNA MDReferrer: Lanny Gan NP B F-BF.[facility] 05/04/2021 12:00:00 AM EDT [facility] <td><content [id number]">Office Visit</content>
<content><content styleCode="xLabel xSecondary">Encounter Reason</content>: <content [id number]" styleCode="xSecondary">Sleep Evaluation - The primary physician is Dr. Lanny Gan. The onset of the sleep problem has been gradual and has been occurring in a persistent pattern for years. The course has been an increasing. The problem is described as moderate. Daytime symptoms include daytime sleepiness, decreased energy, fatigue and dozing off during the day. The sleep problems have had an impact on the patient's driving, concentration and memory. The patient reports daytime sleepiness, pauses observed by someone else during sleep, early childhood education specialist awakening, not being able to get back to sleep and being a restless sleeper. Ancillary symptoms include insomnia and fragmented night sleep, while symptoms do not include cataplexy or sleep paralysis. Patient awakes 4 times at night and is awake for The patient wakes up for to use bathroom, unknown reason and awakened by own snoring. During the first few minutes after awakening the patient feels very groggy after waking up. The patient sleeps in variable positions.</content></content>
<content><content styleCode="xSecondary xLabel">Encounter Diagnosis</content>: <content ID="_[id number]" styleCode="xSecondary">MARISOL (OBSTRUCTIVE SLEEP APNEA)</content></content></td><td><content styleCode="xSecondary">23-Apr-2021 11:00 </content><content styleCode="xLabel xSecondary"> To </content><content styleCode="xSecondary">23-Apr-2021 10:41</content>
<content styleCode="xSecondary">[facility]</content></td><td></td>Outpatient [facility] Office 04/23/2021 11:00:00 AM EDT - 04/23/2021 10:41:36 AM EDT Sleep Evaluation - The primary physician is Dr. Lanny Gan. The onset of the sleep problem has been gradual and has been occurring in a persistent pattern for years. The course has been an increasing. The problem is described as moderate. Daytime symptoms include daytime sleepiness, decreased energy, fatigue and dozing off during the day. The sleep problems have had an impact on the patient's driving, concentration and memory. The patient reports daytime sleepiness, pauses observed by someone else during sleep, early childhood education specialist awakening, not being able to get back to sleep and being a restless sleeper. Ancillary symptoms include insomnia and fragmented night sleep, while symptoms do not include cataplexy or sleep paralysis. Patient awakes 4 times at night and is awake for The patient wakes up for to use bathroom, unknown reason and awakened by own snoring. During the first few minutes after awakening the patient feels very groggy after waking up. The patient sleeps in variable positions.MARISOL ( OBSTRUCTIVE SLEEP APNEA) [facility]) Sleep Evaluation - The primary physician is Dr. Lanny Gan. The onset of the sleep problem has been gradual and has been occurring in a persistent pattern for years. The course has been an increasing. The problem is described as moderate. Daytime symptoms include daytime sleepiness, decreased energy, fatigue and dozing off during the day. The sleep problems have had an impact on the patient's driving, concentration and memory. The patient reports daytime sleepiness, pauses observed by someone else during sleep, early childhood education specialist awakening, not being able to get back to sleep and being a restless sleeper. Ancillary symptoms include insomnia and fragmented night sleep, while symptoms do not include cataplexy or sleep paralysis. Patient awakes 4 times at night and is awake for The patient wakes up for to use bathroom, unknown reason and awakened by own snoring. During the first few minutes after awakening the patient feels very groggy after waking up. The patient sleeps in variable positions. MARISOL (OBSTRUCTIVE SLEEP APNEA) Historical Summary<td><content [id number]">Historical Summary</content></td><td><content styleCode="xSecondary">23-Apr-2021 11:00 </content><content styleCode="xLabel xSecondary"> To </content><content styleCode="xSecondary">23-Apr-2021 8:15</content>
<content styleCode="xSecondary">[facility]</content></td><td></td> [facility] Office 04/23/2021 11:00:00 AM EDT - 04/23/2021 08:15:48 AM EDT [facility]) Outpatient [id number] 04/14/2021 03:37:01 PM EDT [facility] Outpatient Attender: RUSSELL NEWTON MDReferrer: Rakan URBINARADHA.[facility] 03/19/2021 07:24:47 PM EDT - 03/19/2021 11:59:00 PM EDT [facility] Patient discharged. Office Visit Attender: Nikolay Larson MD [facility] 0 03/15/2021 10:00:00 AM EDT [facility]) Outpatient<td><content [id number]">Office Visit</content>
<content><content styleCode="xLabel xSecondary">Encounter Reason</content>: <content [id number]" styleCode="xSecondary">Sleep Evaluation - The primary physician is Dr. Lanny Gan. The onset of the sleep problem has been gradual and has been occurring in a persistent pattern for years. The course has been an increasing. The problem is described as moderate. Daytime symptoms include daytime sleepiness, decreased energy, fatigue and dozing off during the day. The sleep problems have had an impact on the patient's driving, concentration and memory. The patient reports daytime sleepiness, pauses observed by someone else during sleep, early childhood education specialist awakening, not being able to get back to sleep and being a restless sleeper. Ancillary symptoms include insomnia and fragmented night sleep, while symptoms do not include cataplexy or sleep paralysis. Patient awakes 4 times at night and is awake for The patient wakes up for to use bathroom, unknown reason and awakened by own snoring. During the first few minutes after awakening the patient feels very groggy after waking up. The patient sleeps in variable positions.</content></content>
<content><content styleCode="xSecondary xLabel">Encounter Diagnosis</content>: <content [id number]" styleCode="xSecondary">MARISOL (OBSTRUCTIVE SLEEP APNEA)</content><content styleCode="xSecondary">, </content> <content [id number]" styleCode="xSecondary">OBESITY</content></content></td><td><content styleCode="xSecondary">05-Feb-2021 14:15 </content><content styleCode="xLabel xSecondary"> To </content><content styleCode="xSecondary">05-Feb-2021 14:49</content>
<content styleCode="xSecondary">[facility]</content></td><td></td> [facility] Office 02/05/2021 02:15:00 PM EDT - 02/05/2021 02:49:26 PM EDT Sleep Evaluation - The primary physician is Dr. Lanny Gan. The onset of the sleep problem has been gradual and has been occurring in a persistent pattern for years. The course has been an increasing. The problem is described as moderate. Daytime symptoms include daytime sleepiness, decreased energy, fatigue and dozing off during the day. The sleep problems have had an impact on the patient's driving, concentration and memory. The patient reports daytime sleepiness, pauses observed by someone else during sleep, early childhood education specialist awakening, not being able to get back to sleep and being a restless sleeper. Ancillary symptoms include insomnia and fragmented night sleep, while symptoms do not include cataplexy or sleep paralysis. Patient awakes 4 times at night and is awake for The patient wakes up for to use bathroom, unknown reason and awakened by own snoring. During the first few minutes after awakening the patient feels very groggy after waking up. The patient sleeps in variable positions.OBESITYOSA (OBSTRUCTIVE SLEEP APNEA) [facility]) Sleep Evaluation - The primary physician is Dr. Lanny Gan. The onset of the sleep problem has been gradual and has been occurring in a persistent pattern for years. The course has been an increasing. The problem is described as moderate. Daytime symptoms include daytime sleepiness, decreased energy, fatigue and dozing off during the day. The sleep problems have had an impact on the patient's driving, concentration and memory. The patient reports daytime sleepiness, pauses observed by someone else during sleep, early childhood education specialist awakening, not being able to get back to sleep and being a restless sleeper. Ancillary symptoms include insomnia and fragmented night sleep, while symptoms do not include cataplexy or sleep paralysis. Patient awakes 4 times at night and is awake for The patient wakes up for to use bathroom, unknown reason and awakened by own snoring. During the first few minutes after awakening the patient feels very groggy after waking up. The patient sleeps in variable positions. OBESITY MARISOL (OBSTRUCTIVE SLEEP APNEA) Historical Summary<td><content ID="_[id number]">Historical Summary</content></td><td><content styleCode="xSecondary">03-Feb-2021 14:46 </content><content styleCode="xLabel xSecondary"> To </content><content styleCode="xSecondary">03-Feb-2021 14:51</content>
<content styleCode="xSecondary">[facility]</content></td><td></td> [facility] 02/03/2021 02:46:34 PM EDT - 02/03/2021 02:51:27 PM EDT [facility]) Outpatient Referrer: Lanny Gan NP 01/12/2021 03:17:14 PM E DT [facility] Outpatient Attender: ULISES MANCILLA MDReferrer: Jewel hernandes MD 12/12/2020 06:44:25 PM EDT [facility] Outpatient Attender: Abelino Reyes JRReferrer: Jewel gabriel MD 11/24/2020 01:53:48 PM EDT [facility] Recurring Patient Referrer: Jewel Chew MD 11/10/2020 10: 20:44 AM EDT [facility] Outpatient Referrer: Jewel Chew MD 11/04/2020 01:07:38 P M EDT [facility] Outpatient Attender: Jewel Chew MDReferrer: Jewel Chew MD 10/30/2020 07:50:09 AM EST [facility] Outpatient Attender: Jewel Chew MD 10/14/2020 10:46:31 A M EST [facility] Recurring Patient Referrer: Jewel Chew MD 10/02/2020 08: 16:44 AM EST [facility] Outpatient Attender: Jewel Chew MDReferrer: Nikolay Holbrook 08/31/2020 08:12:14 PM EST [facility] Recurring Patient Referrer: Jewel Chew MD 08/31/2020 03: 00:07 PM EST [facility] Recurring Patient Referrer: Jewel Chew MD 08/31/2020 02: 59:26 PM EST [facility] Outpatient Attender: Jewel Chew MDReferrer: Nikolay Holbrook 07/31/2020 08:44:31 AM EST [facility] Outpatient Attender: Jewel Chew MDReferrer: Nikolay Holbrook 06/26/2020 02:39:15 PM EST [facility] Recurring Patient Referrer: Nikolay Helms MD 06/24/2020 03:4 2:52 PM EST [facility] Outpatient Attender: Jewel Chew MDReferrer: Nikolay Holbrook 06/12/2020 03:27:20 PM EDT [facility] Recurring Patient Referrer: Nikolay Helms MD 06/09/2020 12:4 2:48 PM EDT [facility] Recurring Patient Referrer: Nikolay Helms MD 06/08/2020 08:2 7:06 AM EDT [facility] Outpatient Referrer: Jerson Lin DC 06/05/2020 02:08: 23 PM EDT [facility] Immunizations Vaccine Date Status Description Data Source(s) COVID-19 VACCINE Pfizer 09/28/2020 12:00:00 AM EST completed [employer] Vaccine Series Complete: YESThis Data wa s Submitted to [facility] Via [employer]. COVID-19 VACCINE Pfizer 09/07/2020 12:00:00 AM EST completed [employer] Vaccine Series Complete: NOThis Data was Submitted to [facility] Via [employer] Medications Medication Brand Name Start Date Product Form Dose Route Admi nistrative Instructions Pharmacy Instructions Status Indications Reaction Description Data Source(s) CPAP SUPPLIES AND MASK (327.23) ( Device) (Free Text) 04/23/2021 12:00:00 AM EDT active <td>CPAP SUPPLIES AND MASK (327.23) ( Device) (Free Text); Other - NOS at bedtime for 0 days Quantity: 1 {Tablet(s)} Refills: 0</td><td>Ordered: 23-Apr-2021 MD Russell Jiang</td><td>Start: 23-Apr-2021</td> [facility]) 1,250 mcg (50,000 unit) 03/12/2021 12:00:00 AM EDT capsule 12 TAKE ONE CAPSULE BY MOUTH EVERY WEEK TAKE ONE CAPSULE BY MOUTH EVERY WEEK SOLD: 03/13/2021 [facility] tizanidine 4 MG Oral Tablet TIZANIDINE HCL 01/05/2021 12:00:00 AM EDT tablet 30 TAKE ONE TABLET BY MOUTH AT BEDTIME NEEDED TAKE ONE TABLET BY MOUTH AT BEDTIME NEEDED SOLD: 01/05/2021 [facility] 40 mg 05/15/2020 12:00:00 AM EDT capsule,delayed release (DR/EC) 30 TAKE ONE CAPSULE BY MOUTH EVERY DAY TAKE ONE CAPSULE BY MOUTH EVERY DAY SOLD: 05/17/2020 [facility] Omeprazole 40 MG Delayed Release Oral Ca psule omeprazole (PRILOSEC) 40 MG capsule omeprazole (PRILOSEC) 40 MG capsule 05/14/2020 12:00:00 AM EDT 40 mg Oral active Take 1 capsule (40 m g total) by mouth daily [facility] Azelastine HCl 0.15 % BARBARA [id number] 03/31/2020 12:00:00 AM EDT aborted SPRAY 2 SPRAYS IN EACH NOSTRIL T WO TIMES A DAY [facility] Insurance Providers Payer name Policy type / Coverage type Policy ID Covered green party ID Covered green party's relationship to sutton Policy [place] Plan Information [facility] P [id number] SELF [id number] EXCELLUS C [id number] Self [id number] EXCELLUS BCBS [id number] EXCELLUS BCBS [id number] Arlene VYW [id number] [facility] P [id number] SELF [id number] [facility] P [id number] SELF [id number] [employer] [id number] SP [id number] Problems, Conditions, and Diagnoses Code Display Name Description Problem Type Effective Dates Data Source(s) 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 s Tear film insufficiency of bilateral eyes Problem 03/15/2021 12:00:00 AM EDT [facility] ([facility]) H43.393 Vitreous opacities Vitreous opacities Problem 12:00:00 AM EDT [facility] ([facility]) Surgeries/Procedures Procedure Description Date Indications Data Source(s) [facility] XM&EVAL COMPRHNSV ESTAB PT 1/> VST 03/15 12:00:00 AM EDT [facility] ([facility]) OFFICE OUTPATIENT NEW 30 MINUTES 021 02:15:00 PM EDT - 02/05/2021 02:49:26 PM EDT [facility] PC) Results ID Date Data Source [id number] 06/11/2021 06:26:05 PM EDT [facility] Name Value Range Interpretation Code Description Data Yeimy rce(s) Supporting Document(s) CHOLESTEROL @ 186 mg/dL (0-200) [facility] TRIGLYCERIDE @ 263 mg/dL (30-200) H [facility] HDL CHOLESTEROL @ 35 mg/dL (>40) L [facility] PER NCEP ATP III GUIDELINES:RESULTS LOWE R THAN 40 MG/DL ARE SUGGESTIVEOF INCREASED RISK FOR CORONARY ARTERYDISEASE. RESULTS > OR = TO 60 MG/DL ARECONSIDERED A NEGATIVE RISK FACTOR. CHOL/HDL RATIO 5.3 RATIO [facility] INTERPRETATION OF CHOL-HDL RATIO CHD RISK FEMALE MALEVERY HIGH >8.3 >14.3HIGH 5.6- 8.3 6.7- 14.3AVERAGE 3.7- 5.6 4.0- 6.7BELOW AVERAGE 2.5- 3.7 2.7- 4.0PROTECTED <2.5 <2.7 LDL CHOL (CALC) 98 mg/dL (<130) [facility] PER NCEP ATP III GUIDELINES: OPTIMAL < 100 NEAR OPTIMAL 100 - 129BORDERLINE HIGH 130 - 159 HIGH 160 - 189 VERY HIGH > 189 ID Date Data Source [id number] 06/07/2021 02:57:00 PM EDT [facility] ([place])CLINICAL HISTORY: Peripheral vascular disease.COMPARISON: None.TECHNIQUE: Ankle-brachial indices were calculated.FINDINGS: The right brachial blood pressure is 124 mmHg, the left brachial blood pressure is 127 mmHg.The right ankle-brachial index is 1.12. NormalThe left ankle-brachial index is 1.16. NormalIMPRESSION: Normal ankle-brachial indices.Dictated by: MIRIAM WASHINGTON M.D. on 1 Transcribed by: jose on 06/07/2021 04:21 PMCDS G code: ,CDS Modifier: ,cc: Name Value Range Interpretation Code Description Data Yeimy rce(s) Supporting Document(s) ID Date Data Source [id number] 05/04/2021 12:08:26 PM EDT [facility] INFORMATIONPatient MRN Name Date of Age Gend*PT [id number] Myriam Prabhakar 1980 41 years M ---PT Location Admission Date/Time Visit ID Attending Provider --- --- --- --- EPI ID CSN Admitting Pro vider [id number] ---Cardiology History and PhysicalName: Myriam Prabhakar Gender: maleDate of : 1980 Age: 41 yearsPrimary Care Provider / Referring Physician: Rakan Riggins PACardiology Telemedicine VisitPatient was identified by name and date of .Verbal consent was obtained from the patient for this telemedicine visit.Patient is aware of the risks, limitations, and benefits of a telemedicinevisit.This telemedicine assessment was conducted remotely with the assistance ofMyBeautyComparemunication technology: New patient referral via videoCurrent HistoryChief Complaint: This is a Telemedicine visitHPI:This patient is a 41 years male with the following updated problem list:1. Avascular necrosis of HIP: No obvious etiology2. Diffuse pain involving the neck, head and chest and legs3. Heavy tobacco abuse: Patient was a 2 pack-a-day smoker and has now isdecreasingSmoke: 2 PPD now 08/22 PPDFHx: No heart diseaseHe has been referred for diffuse pain involving his head his back and his lowerextremities. He is also has some left-sided chest pain which is infrequent andshort-lived. He is concerned that he has vascular disease which has resulted inhis hip problem as well as other issues related to pain in his legs. He alsohas had his pain in which she seen a neurologist for and multiple tests havebeen done and they have suggested that he see a executive community planning. He has not had anEKG done or any blood work. He denies any syncope or presyncope and overall hisactivity is relatively normalReview of Systems General Denies dizziness or lightheadedness. Denies any recent, unexpectedweight changes. HEENT Denies any loss or change of vision. Denies tinnitus. Head pain andpressure in his head Respiratory Denies PND, orthopnea, AMEZQUITA, hemoptysis, cough, or shortness ofbreath. Cardiac Denies chest pain or pressure, denies palpitations GI Denies melena, hematochezia, nausea, or vomiting. MS Denies any lower extremity edema. Pain in legs when walking, feet get cold Neuro Denies speech, motor, or sensory impairment. Psych Denies depression or anxiety. Endo Denies polyuria or polydipsia, denies temperature intolerance. Derm Denies diaphoresis, non-healing skin woundsPast HistoryPast Medical History:Diagnosis Date Back pain LEE (nonalcoholic steatohepatitis)Past Surgical History:Procedure Laterality Date ADENOIDECTOMY TONSILLECTOMYFamily HistoryProblem Relation Age of Onset Healthy, No Significant History Mother Healthy, No Significant History Father Healthy, No Significant History Sister Diabetes Paternal GrandfatherSocial HistorySocioeconomic History Marital status: Single Spouse name: Not on file Number of children: Not on file Years of education: Not on file Highest education level: Not on fileOccupational History Not on fileTobacco Use Smoking status: Current Every Day Smoker Packs/day: 0.50 Years: 20.00 Pack years: 10.00 Types: Cigarettes Smokeless tobacco: Never Used Tobacco comment: has weaned down from 1ppd to .5. Intends to graduallydecrease. No quit date setSubstance and Sexual Activity Alcohol use: Never Drug use: Never Sexual activity: Not on fileOther Topics Concern Bike Helmet Not Asked History of Falls Not Asked Self-Exams Not Asked Caffeine Concern Not Asked Hobby Hazards Not Asked Sleep Concern Not Asked Daily Calcium Supplement Not Asked Lead Exposure Not Asked Special Diet Not Asked Daily Vitamin D Supplement Not Asked Service Not Asked Stress Concern Not Asked Domestic Violence in home Not Asked Radon exposure Not Asked Weight Concern Not Asked Exercise Not Asked Seat Belt Not Asked Well water Not Asked Firearms in home Not AskedSocial History Narrative Not on fileSocial Determinants of HealthFinancial Resource Strain: Difficulty of Paying Living Expenses:Food Insecurity: Worried About Running Out of Food in the Last Year: Ran Out of Food in the Last Year:Transportation Needs: Lack of Transportation (Medical): Lack of Transportation (Non-Medical):Physical Activity: Days of Exercise per Week: Minutes of Exercise per Session:Stress: Feeling of Stress :Social Connections: Frequency of Communication with Friends and Family: Frequency of Social Gatherings with Friends and Family: Attends Hoahaoism Services: Active Member of Clubs or Organizations: Attends Club or Organization Meetings: Marital Status:Intimate Partner Violence: Fear of Current or Ex-Partner: Emotionally Abused: Physically Abused: Sexually Abused:Medications and AllergiesALLERGIES/SENSITIVITIES: Motrin [ibuprofen]Current Outpatient Medications: cyclobenzaprine (FLEXERIL) 10 MG tablet, Take 1 tablet (10 mg total) by mouthnightly as needed for muscle spasms, Disp: 90 tablet, Rfl: 0 omeprazole (PRILOSEC) 40 MG capsule, Take 1 capsule (40 mg total) by mouthdaily, Disp: 30 capsule, Rfl: 0PhysicalPHYSICAL EXAM: General: Alert, No acute distress.Oriented to person, place, and situation.Respiratory: Normal respiratory effort, no increased work of breathing.Psych: Mood and affect appropriate.Ht 1.956 m (6' 5") | Wt (!) 104.3 kg (230 lb) | BMI 27.27 kg/m DiagnosticsLabReviewedImaging/Testing: Reviewed neuro resultsEKG: No testingAssessment & PlanASSESSMENT/PLAN:1. Leg pain: Avascular necrosis of the hip could certainly be due to previouship injury and not necessarily from vascular disease. He does have diffuse legpain and was a very heavy smoker and continues to smoke and it is certainlypossible that he has developed some vascular disease. I have ordered ABIs ofhis lower extremities to rule out the possibility of vascular disease.2. Chest pain: I ordered a stress echocardiogram to rule out underlying cardiacdisease and I will also get an electrocardiogram at that time. I have orderedlipids to evaluate him for dyslipidemia since [facility]. He knows to contact us if anything changes we will discuss the results ofall the testing once we see him in follow-up.I have spent 30 minutes with the patient, counseling/coordinating the patient'scare.I discussed the above listed diagnoses and discussed Prognosis, Managementoption risks and benefits, Treatment/management instructions, Compliance andRisk Factor ReductionFollow up has been arranged and the patient knows to call if any issues arisebetween now and then, all question were answered.Signature: Favio Osuna, MDDate: May 04, 2021Time: 11:44 AMThis document or parts of this document, were dictated using [employer]. A reasonable attempt at proofreading has been made to minimize errors.Please call with any questions or corrections. Name Value Range Interpretation Code Description Data Yeimy rce(s) Supporting Document(s) ID Date Data Source [id number] 02/10/2021 12:41:00 PM EDT [facility]EX[facility]: MRI BRAIN WWO GADOCLINICAL HISTORY: Multiple sclerosisCOMPARISON: NoneTECHNIQUE: Multiplanar multi sequence imaging through the brain performed. Study performed with and without intravenous contrast.15 cc ProHanceFINDINGS: The ventricles, cisterns and sulci are appropriate.There is an 8 mm size nonenhancing nodule in the caudal portion of the fourth ventricle. No obstruction identified. This probably represents choroid plexus.The pituitary gland is unremarkable.The brainstem and cerebellum are unremarkable.No masses, mass effect, hemorrhage or cortical infarcts are identified.There are normal vascular flow voids.No concerning areas of abnormal enhancement identified.The orbits are intact.The paranasal sinuses are clear.The mastoid air cells are clear.IMPRESSION:1. There is a 8 mm size nodule in the caudal aspect of the fourth ventricle probably representing choroid plexus. Follow-up exam may be helpful to assess stability.2. Otherwise unremarkable MRI of the brain3. No concerning areas of abnormal enhancement identified.Dictated by: DAVID CLIFFORD M.D. on 02/10/2021lectronically Signed by: DAVID CLIFFORD M.D. on 02/10/2021 01:01 PMTranscribed by: jose on 02/10/2021 01:01 PMcc: Name Value Range Interpretation Code Description Data Yeimy rce(s) Supporting Document(s) ID Date Data Source [id number] 01/28/2021 06:54:22 PM EDT [facility] Name Value Range Interpretation Code Description Data Yeimy rce(s) Supporting Document(s) ESR 15 mm/h (0-15) [facility] ID Date Data Source [id number] 01/28/2021 07:54:40 PM EDT [facility] Name Value Range Interpretation Code Description Data Yeimy rce(s) Supporting Document(s) C REACTIVE PROTEIN @ 0.7 mg/dL (0.0-0.5) H [facility] ID Date Data Source [id number] 01/28/2021 07:54:40 PM EDT [facility] Name Value Range Interpretation Code Description Data Yeimy rce(s) Supporting Document(s) TSH,ULTRASENSITIVE @ 2.060 mIU/L (0.360-4.170) [facility] ID Date Data Source [id number] 01/28/2021 07:55:15 PM EDT [facility] Name Value Range Interpretation Code Description Data Yeimy rce(s) Supporting Document(s) 25 HYDROXY VIT D @ 11 ng/mL (31-100) L [facility] A REVIEW OF THE LITERATURE SUGGESTS THEF OLLOWING RANGES FOR THE CLASSIFICATIONOF 25-OH VITAMIN D STATUS: VITAMIN D STATUS 25-OH VITAMIN D DEFICIENCY <20 NG/MLINSUFFICIENCY 20-30 NG/MLSUFFICIENCY 31 - 100 NG/MLTOXICITY > 100 NG/ML A PEDIATRIC REFERENCE RANGE HAS NOT BEENESTABLISHED USING THIS METHOD. ID Date Data Source [id number] 01/28/2021 08:08:29 PM EDT [facility] Name Value Range Interpretation Code Description Data Yeimy rce(s) Supporting Document(s) HEMOGLOBIN A1C @ 5.6 % (4.0-6.0) [facility] Performed using RevoLaze immunoassa y.Care must be taken when interpreting [id number] in patients with a hemoglobin variantor decreased erythrocyte lifespan. Values 5.7 - 6.4% suggest prediabetes.Values >=6.5% are diagnostic for diabetes.REFERENCE: DIABETES CARE 2018: 41(S13-S27). EST AVERAGE GLUCOSE 114 mg/dL [facility] ID Date Data Source [id number] 01/28/2021 09:10:56 PM EDT [facility] Name Value Range Interpretation Code Description Data Yeimy rce(s) Supporting Document(s) LYME IGM/IGG AB @ (NEG) [facility] A Negative serologic test for Lyme Disea seindicates no serologic evidence of infectionwith B burgdorferi at the time this specimenwas collected. A repeat specimen should be collected in 2 to 4 weeks if clinicallyindicated. In-house assay revised on 10/12/2020 and nowincludes antibodies against outer surfaceprotein (OspC) in addition to VlsE. ID Date Data Source [id number] 01/28/2021 09:43:36 PM EDT [facility] Name Value Range Interpretation Code Description Data Yeimy rce(s) Supporting Document(s) THYROXINE @ 13.4 ug/dL (4.5-10.9) H [facility] ID Date Data Source [id number] 01/29/2021 01:41:24 PM EDT [facility] Name Value Range Interpretation Code Description Data Yeimy rce(s) Supporting Document(s) MARIEL SCREEN @ (NEG) [facility] ID Date Data Source [id number] 01/29/2021 01:41:24 PM EDT [facility] Name Value Range Interpretation Code Description Data Yeimy rce(s) Supporting Document(s) SSA IGG AB @ (NEG) [facility] ID Date Data Source [id number] 01/29/2021 01:41:24 PM EDT [facility] Name Value Range Interpretation Code Description Data Yeimy rce(s) Supporting Document(s) SSB IGG AB @ (NEG) [facility] ID Date Data Source [id number] 01/31/2021 12:39:52 AM EDT [facility] Name Value Range Interpretation Code Description Data Yeimy rce(s) Supporting Document(s) ANGIO CONVERT ENZ 43 U/L [facility] Reference range: 9 to 67 Performed By: [facility] [address] [place], [place] [id number] Clinical Application Manager: Winsome Graham MD ID Date Data Source [id number] 01/31/2021 01:17:12 AM EDT [facility] Name Value Range Interpretation Code Description Data Yeimy rce(s) Supporting Document(s) ALDOLASE 7.2 U/L [facility] Reference range: 1.5 to 8.1 REFERENCE IN TERVAL: Aldolase Access complete set of age- and/or gender-specific reference intervals for this test in the [employer] [facility] Test Directory ([place]). Performed By: [facility] [address] [place] [address] Clinical Application Manager: Wnisome Graham MD ID Date Data Source [id number] 02/02/2021 06:04:10 AM EDT [facility] Name Value Range Interpretation Code Description Data Yeimy rce(s) Supporting Document(s) METHYLMALONIC ACID 0.29 umol/L [facility] Reference range: 0.00 to 0.40 INTERPRETI VE INFORMATION: MMA Serum/Plasma, Vitamin B12 Status This test was developed and its performance characteristics determined by [facility]. It has not been cleared or approved by the [place] Food and Drug Administration. This test was performed in a CLIA certified laboratory and is intended for clinical purposes. Performed By: [facility] [address] [place] [id number] Clinical Application Manager: Winsome Graham MD ID Date Data Source [id number] 02/03/2021 12:46:13 PM EDT [facility] Name Value Range Interpretation Code Description Data Yeimy rce(s) Supporting Document(s) TOTAL PROTEIN 7.2 g/dL (6.4-8.2) [facility] TOTAL PROTEIN EPP 7.2 g/dL (6.4-8.2) [facility] ALBUMIN CALC 4.7 g/dL (3.9-5.1) [facility] ALPHA 1 CALC 0.2 g/dL (0.1-0.3) [facility] ALPHA 2 CALC 0.7 g/dL (0.4-1.0) [facility] BETA CALC 0.8 g/dL (0.5-1.1) [facility] GAMMA CALC 0.8 g/dL (0.4-1.2) [facility] MONOCLONAL CALC (NOMONO) [facility] ALBUMIN PERCENT 65.9 % (58.8-69.6) [facility] ALPHA 1 PERCENT 2.5 % (1.6-3.0) [facility] ALPHA 2 PERCENT 10.1 % (7.2-13.2) [facility] BETA PERCENT 10.5 % (8.0-14.7) [facility] GAMMA PERCENT 11.0 % (7.3-16.4) [facility] INTERPRETATION: [facility] MD CARRIE 02/01/21Interpretation perfo rmed atLaboratory [facility] [address] [address] ID Date Data Source [id number] 12/12/2020 06:44:25 PM EDT [facility], PCName: Myriam PrabhakarDOB: 1980Provider: Steve Mancilla: 12/11/2020 Reason For VisitMyriam Prabhakar is here today for Cervical and Thoracic spine. Myriam had his first Covid vaccine on 10/04/2020. Myriam had his second Covid vaccine on 10/20/2020. Myriam Prabhakar is an established patient here for a new problem. MRI's were ordered by Olivier Mooney Other DOI/DOO: 2016. [employer]. 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 History of Present IllnessChronic neck painChronic right mid axillary flank pain localized around the T10 distributionStates has upcoming appointment with Dr. Barreto of neurology December 2020Main problem is his pain localized in the right mid axillary lower rib areaAlso states gets tingling in the left lower extremity The patient complains of pain in the neck. The pain radiates to the right and shoulder(s) . There is no radiation of pain to the upper extremities. The patient denies signs of bladder dysfunction, bowel dysfunction, cancer/metastasis, infection and myelopathy . Patient's pain is achy . The pain severity is rated 3-7 out of 10. The pain is aggravated by activity . Results/Data OtherBelow diagnostic testing were independently reviewed as well as reviewed the official corresponding reports:MRI cervical SOS 12/07/2020: C5-6 spondylosis with foraminal narrowing. No significant central stenosisMRI thoracic SOS 12/07/2020: Multilevel DDD. T5-T6 protrusion with mild to moderate stenosis, T6-T7 protrusion with moderate stenosis; T7-T8 protrusion mild to moderate stenosis; right T8-T9 protrusion mild to moderate stenosis. No significant foraminal narrowingReviewed in detail the results of the diagnostic testing. Reviewed the pertinent applicable clinical implications relating to the patient. Also provided a copy of the results for their personal records. Assessment 1. Neck pain (723.1) (M54.2) 2. Cervical spondylosis (721.0) (M47.812) 3. HNP (herniated nucleus pulposus), thoracic (722.11) (M51.24) Condition: Chronicetiology: age- related spine/joint degenerationlevels: C5-6, T5-T6, T6-T7, T7-T8, T8-T9 Plan Physical Therapy (SOS) - Spinal Physical Therapy Evaluation and Treatment Status:Complete Done: 11Dec2020 Ordered;For: Neck pain, Thoracic back pain; Ordered By: Ulises Mancilla Performed: Due: [id number]; Last Updated By: Timothy Doran; 12/11/2020 3:46:30 PMDuration: : Four WeeksPT Frequency : Two or three times a weekSOS ROM and Strength : Range of motion and strengthening exercises.Heat Ultra and Modalities : Heat Ultrasound and modalities as indicatedEvaluate and Treat: : Please evaluate and treat as indicated. Plan, Assessment and Recommendation(s) Follow up as needed, if not improving, or getting worse. Long discussion reviewing the different treatment conservative options(observation, medication(s), physical therapy, home health care respiratory therapist, acupuncture, pain clinic, home exercise program, etc.)--- with pros and cons, potential risks/potential benefits of each option, as well as the chances of successes/failures of each option.At this time, they wish to proceed with:Continue with neurology evaluation This document was dictated and electronically signed using Yodlee software. A reasonable attempt at proof reading has been made to minimize errors. Please call with any questions. Signatures Electronically signed by : Ulises Mancilla M.D.; Dec 12 2020 6:44PM EST (Author) Name Value Range Interpretation Code Description Data Yemiy rce(s) Supporting Document(s) ID Date Data Source [id number] 12/07/2020 08:55:00 AM EDT [facility] PATIENT MR#: [id number] NAME: Myriam Tracey DATE OF : 1980REFERRING PHYSICIAN: Ulises MancillaEXELISHA DATE: 12/04/2020MRI thoracic spine without intravenous contrastHistory: Thoracic back painComparison: Thoracic radiographs November 23, 2020Technique: Multiplanar, multisequential imaging of the thoracic spine wasperformed without intravenous contrast.Findings:Vertebral body height and alignment is maintained.Several small scattered vertebral body hemangiomas are noted. The visualizedmarrow signal is otherwise preserved.The thoracic spinal cord is unremarkable in signal and caliber.Multilevel disc desiccation is seen. There is prominent posterior epidural fat, most pronounced extending from T3-T9.At T5-T6, a broad-based central disc protrusion is seen. No significantforaminal narrowing is seen. Mild to moderate central spinal canal stenosis isseen primarily related to prominent posterior epidural fat.At T6-T7, a broad-based central disc protrusion is seen. There is moderatecentral spinal canal stenosis is seen, primarily related to prominent posteriorepidural fat. No significant foraminal narrowing is seen.At T7-T8, a broad-based central disc protrusion is seen. There is mild tomoderate central spinal canal stenosis, primarily related to prominent posteriorepidural fat. No significant foraminal narrowing is seen.At T8-T9, a broad-based right paracentral disc protrusion is seen. There ismild to moderate central spinal canal stenosis primarily related to prominentposterior epidural fat. No significant foraminal narrowing is seen.Impression:Mild multilevel dege nerative disc disease with epidural lipomatosis along theposterior aspect of the thoracic spinal canal. There is associated moderatecentral spinal canal stenosis at T6-T7 and mild to moderate central spinal canalstenosis at T5-T6, T7-T8, and T8-T9 primarily related to prominent epidural fat.Read by: Catalino AstorgaTranscribed by: Catalino AstorgaTranscribed Date: 12/07/2020 8:55:53 AMElectronically signed by: Catalino Jain signed: 12/07/2020 8:56:36 AM Name Value Range Interpretation Code Description Data Yeimy rce(s) Supporting Document(s) ID Date Data Source [id number] 12/07/2020 09:51:00 AM EDT [facility] PATIENT MR#: [id number] NAME: Myriam Tracey DATE OF : 1980REFERRING PHYSICIAN: Ulises Larkin DATE: 12/04/2020XAM: CERVICAL SPINE MRIINDICATION: Chronic neck pain worsening over the past 6-8 months. Pain andnumbness in the bilateral arms. Mid back pain.COMPARISON: Cervical spine radiographs 11/23/2020, MRI cervical spine 07/26/2013 mTECHNIQUE: MRI scan was performed using various scan planes and pulse sequences.FINDINGS: There is 3 mm retrolisthesis of C5 on C6, new from 07/26/2013 prior MRI. Vertebral body heights are maintained. New mild C5-C6 disc space narrowing. New mild anterior C5-C6 endplate osteophytosis. No acute fracture ordestructive bone lesion. The cervical cord demonstrates normal signal andcaliber. The atlantodens interval is intact. The visualized posterior fossa isunremarkable.C2-C3: No posterior disc bulge, central canal narrowing, or neural foraminalstenosis.C3-C4: No posterior disc bulge, central canal narrowing, or neural foraminalstenosis.C4-C5: No posterior disc bulge, central canal narrowing, or neuroforaminalstenosis.C5-C6: Mild bilateral facet joint hypertrophy. Mild retrolisthesis. Mildbroad-based posterior disc osteophyte complex mildly contacts the left greatthan right ventral aspects of the cord, new from prior. Mild central canalstenosis is new from prior. New mild to moderate left neural foraminalstenosis. Minimal right foraminal disc extension and right neural foraminalnarrowing.C6-C7: No posterior disc bulge, central canal narrowing, or neural foraminalstenosis.C7-T1: No posterior disc bulge, central canal narrowing, or neural foraminalstenosis.No significant abnormality is seen within the paraspinal soft tissues.IMPRESSION: Compared to 07/26/2013:New C5-C6 mild retrolisthesis and mild broad-based posterior disc osteophytecomplex with new mild central canal stenosis. New mild to moderate left andminimal right neural foraminal narrowing.Read by: Donald Larabed by: Donald Orourke Date: 12/07/2020 9:51:18 AMElectronically signed by: Donald Elliott signed: 12/07/2020 9:51:22 AM Name Value Range Interpretation Code Description Data Yeimy rce(s) Supporting Document(s) ID Date Data Source [id number] 11/24/2020 01:53:48 PM EDT [facility] PCName: Myriam FigueroaB: 1980Provider: Gena Styles: 11/23/2020 Reason For VisitPatient is seen at the request of dr. Jewel Chew. Myriam had his second Covid vaccine on . Myriam Prabhakar is a new patient. Patient states he has constant right sided pain for approx. 6 years. He states the pain has gotten worse over time. He states he has also been having neck pain which he states is on and off radiates down right arm. The patient is currently residing at home. 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 History of Present IllnessPatient is a 40-year-old male presents to the office with a chief complaint of chronic cervical and pain involving the distal right 12th rib region. Pain will radiate medially to his thoracic spine midline. Direct pressure on his ribs will cause his right upper extremity to experience numbness and tingling. Denies any upper extremity weakness. Previous treatments include physical therapy and NSAIDs. Seen by Dr. Chew who ordered a CT of his chest and abdomen and made a referral to a neurologist. Scheduled to see Dr. Barreto on 01/05/2021. Results/DataXRays were ordered, obtained and interpreted today in the office. Indication: pain/dysfunction. Site: cervical spine Views: 4 Views, AP/Lateral/Obliques Findings:. No fractures, dislocations, or other significant abnormalities. XRays were ordered, obtained and interpreted today in the office. Indication: pain/dysfunction. Site: Thoracic Spine Views: 2 Views, AP/Lateral Standing Findings:. No fractures, dislocations, or other significant abnormalities. Results/Data OtherMRI [facility]. Compared to MRI from 07/26/2013. Impression: Mild progression of disc degeneration at L5-S1. Central disc protrusion is smaller. No additional pathologies.CT chest/abdomen performed at [facility] on 11/13/2020. Impression: No acute disease. Bones-un remarkable. AssessmentNeck painRight-sided distal thoracic spine pain Plan X-Ray I Cervical Spine - 2 views (XRays were ordered, obtained and interpreted today inthe office. Indication: pain/dysfunction.); Status:Complete; Done: 23Nov2020 Perform:SOS22; Due:07Dec2020; Last Updated By:Olivia Park; 11/23/2020 10:45:22 AM;Ordered; For:Neck pain, Thoracic back pain; Ordered By:Abelino Styles; X-Ray I Thoracic Spine - 2 views (XRays were ordered, obtained and interpreted today inthe office. Indication: pain/dysfunction.); Status:Complete; Done: 23Nov2020 Perform:SOS22; Due:07Dec2020; Last Updated By:Olivia Park; 11/23/2020 10:45:26 AM;Ordered; For:Thoracic back pain; Ordered By:Abelino Styles; MRI (SOS) Referral Diagnostic Diagnostic Status: Need Information - FinancialAuthorization Requested for: 23Nov2020 Ordered;For: Neck pain, Thoracic back pain; Ordered By: Ulises Mancilla Performed: Order Comments: Please schedule MRI at [facility], per patient request. Due: 07Dec2020; Last Updated By: Kassie Crawford; 11/23/2020 11:19:25 AMMRI Ordered Contrast II : 01: without gadoBody Part II: : Thoracic SpineLaterality II: : _Not ApplicablePatient will follow up with: : Dr. MancillaMRAlex Ordered Contrast : 01: without gadoLaterality: : _Not Applicable Plan, Assessment and Recommendation(s) The nature of the diagnosis and various treatment alternatives were discussed today, including invasive, operative, and non-operative options. Patient complaining of neck pain with right distal thoracic spine pain. Symptoms are chronic. Refractory to physical therapy and home exercises. Recommend further evaluation with MRI cervical spine and MRI thoracic spine. Follow-up to review the results. This document was dictated and electronically signed using Yodlee software. A reasonable attempt at proof reading has been made to minimize errors. Please call with any questions. Signatures Electronically signed by : Jesica Howard; Nov 24 2020 10:51AM EST (Author) Electronically signed by : Ulises Mancilla M.D.; Nov 24 2020 1:53PM EST Name Value Range Interpretation Code Description Data Yeimy rce(s) Supporting Document(s) ID Date Data Source [id number] 11/13/2020 03:52:00 PM EDT [facility] CT C HEST ABDOMEN WO IV CONTRASTCLINICAL HISTORY: Intermittent right 12th rib pain that radiates into the thoracic spine.COMPARISON: 10/31/2014TECHNIQUE: Helical acquisition performed through the chest, abdomen and pelvis.FINDINGS: CT CHEST:Lung parenchyma and pleura: The lungs are clear and expanded. No suspicious nodules, infiltrates or effusions are identified.Mediastinum: No abnormal masses, fluid collections or adenopathy identified.Chest wall: No abnormal masses, fluid collections identified. No axillary adenopathy identified.CT ABDOMEN/PELVIS:Liver:Diffuse fatty infiltration of the liver with focal fatty sparing adjacent to the gallbladder.Gallbladder: Unremarkable.Pancreas: Unremarkable.Spleen: Unremarkable.Adrenal glands: Unremarkable.Kidneys: 1.2 cm low to intermediate density lesion in the midpole of the left kidney laterally probably representing a cyst.Aorta: Unremarkable.IVC: Unremarkable.Bowel: Multiple diverticuli in the descending colon. Bowel the abdomen is otherwise unremarkableBones: Unremarkable.No abnormal masses, fluid collections or adenopathy seen.IMPRESSION:1. Diffuse fatty infiltration liver2. Colonic diverticulosis3. Probable left renal cyst. Ultrasound may be helpful4. No acute diseaseDictated by: DAVID CLIFFORD M.D. on 1 Transcribed by: jose on 11/13/2020 04:05 PMCDS G code: , ,CDS Modifier: , ,cc: Name Value Range Interpretation Code Description Data Yeimy rce(s) Supporting Document(s) ID Date Data Source [id number] 10/30/2020 07:50:09 AM EST [facility] PCName: Myriam PrabhakarDOB: 1980Provider: Aide Chew: 10/27/2020 Reason For VisitMurphygerardo Prabhakar is here today for Fup L-Spine MRI. Myriam Prabhakar is here for evaluation of MRI results. Patient is working at this time at regular duty. AssessmentREASON FOR VISIT:Follow-up MRI of his lumbar spine. HPI: This is a 40-year-old male who had an injury and had an MRI scan which showed a nondisplaced left femoral head fracture with marrow edema and over time, that got better. I saw him for a virtual appointment. He had all these complaints of issues below his knee, intermittent cold feelings, intermittent pain in the arch of his foot. Those symptoms occur intermittently, he may not have them for a while, then he has it every day. He also has complaints near his 12th rib, which radiates towards his thoracic spine. That intermittently comes and when it does come, it interferes with his ability to sleepPAST MEDICAL HISTORY:Remains unchanged. PHYSICAL EXAMINATION:He is 6' 5 and weighs 230 pounds. No assistive device. Passive motion of his left hip is painless. I palpated his ribs, they appear symmetric to me, but the right one feels more prominent to him and the pain that he gets radiates towards his back. Neurologically, no issues. IMAGING: An MRI scan of his lumbar spine was ordered, which shows an L5-S1 mild disc degeneration and a small disc protrusion at that level. <OBX.5.1><OBX.5.1.1>IMPRESSION </OBX.5.1.1><OBX.5.1.2> PLAN: </OBX.5.1.2></OBX.5.1>I think his left hip is coming along beautifully. I have no suggestions. His lumbar spine is clean. It doesn't really explain his foot issue , but at least we know his lumbar spine is an issue. As far as his thoracic spine and his ribs go, it could be radicular symptoms from the thoracic spine. What I think I'll do is send him to a neurologist because I think the neurologist has the ability to cover both his feet issues and his thoracic pain. Signatures Electronically signed by : Kateryna Castillo, ; Oct 27 2020 3:24PM EST Electronically signed by : Jewel Chew M.D.; Oct 30 2020 7:50AM EST Name Value Range Interpretation Code Description Data Yeimy rce(s) Supporting Document(s) ID Date Data Source [id number] 10/14/2020 10:28:00 AM EST [facility] PATIENT MR#: [id number] NAME: Tracey Myriam DATE OF : 1980REFERRING PHYSICIAN: Jewel Carballo DATE: 10/13/2020XAM: LUMBAR SPINE MRI WITHOUT CONTRASTINDICATION: Low back pain right side ?6 months. Left hip pain radiating downleft leg..COMPARISON: MRI 07/26/2013TECHNIQUE: MRI scan of the lumbar spine was performed on a 1.5T GE Scanner usingvarious scan planes and pulse sequences. FINDINGS: The lumbar vertebral bodies are normal in height. No fracture ordestructive bone lesion. No lesion seen in the conus. Benign hemangioma [id number] body.No spondylolysis or spondylolisthesis.L1-2, L2-3, L3-4, L4-5 are unremarkable.L5-S1: Mild disc space narrowing and disc degeneration. Mild broad-basedcentral disc protrusion is smaller. Very mild thecal sac compression. No nervedisplacement or compression. Mild facet arthropathy. Foramina are patent.IMPRESSION: L5-S1 progressive mild disc degeneration. Mild broad-based centraldisc protrusion is smaller.Read by: HOANG MERCADOTranscribed by: HOANG MERCADOTranscribed Date: 10/14/2020 10:28:52 AMElectronically signed by: HOANG MERCADODate signed: 10/14/2020 10:30:06 AM Name Value Range Interpretation Code Description Data Yeimy rce(s) Supporting Document(s) ID Date Data Source [id number] 10/14/2020 10:46:31 AM EST [facility] PCName: Myriam FigueroaB: 1980Provider: Aide Chew: 10/02/2020 Reason For VisitVerbal consent obtained from the patient for telemedicine visit. This assessment was done using telemedicine as a result of social distancing due to the outbreak of COVID-19. 15 minutes for review of chart, virtual visit itself, and documentation. AssessmentREASON FOR VISIT:Follow-up of left hip issuesThis 40-year-old male was seen in the middle of August. He was 10 weeks out from his injury, so he is now 14 weeks out. 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 An MRI scan showed a nondisplaced femoral head fracture with marrow edema. That continues to improve and it's much better than it was in mid-August. Now his complaints are pain below his knees and an intermittent very cold feeling in his feet, not related to the outside temperature. Again, his hip pain is improving.PAST MEDICAL HISTORY:Please see intake of 08/31/20. Unchanged.VIRTUAL PHYSICAL EXAMINATION:He remains 6'5 and 230 pounds. He is alert, awake and oriented, with appropriate mood and affect. He is moving around with pretty good motion. He doesn't seem to be limited in terms of ambulation.Virtual examination of left hip: Passive motion does not hurt. He denies any issues with sensation and motor.IMPRESSION:The left femoral head injury is clearly getting better but he is having these other symptoms and he has chronic issues with his back. He had a work-up, with an MRI scan six years ago. Given the complaints he has in regard to below his knee, a repeat MRI scan of his lumbar spine is warranted. We will order that and I will see him in the office when it has been completed. Signatures Electronically signed by : Anabella Small, ; Oct 02 2020 8:51AM EST Electronically signed by : Jewel Chew M.D.; Oct 14 2020 10:46AM EST Name Value Range Interpretation Code Description Data Yeimy rce(s) Supporting Document(s) ID Date Data Source [id number] 08/31/2020 08:12:14 PM EST [facility] PCName: Myriam PrabhakarDOB: 1980Provider: Tona ChewOS: 08/31/2020 Reason For VisitMyriam Prabhakar is here today for left hip. Myriam Prabhakar is an established patient here for follow up. ([employer]). Patient is working at this time at regular duty. AssessmentReason for Visit: Followup, left hip injury.History of Present illness: This 40-year-old male presents for followup; it is just under 10 weeks out from his injury. 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 He had severe left hip pain. An MRI scan showed a nondisplaced femoral head fracture with marrow edema. It did not collapse. He is feeling much better. He stopped using the crutches. He can stand on that leg. He has minimal pain. Past Medical History: Unchanged from 07/21/20.Physical Examination: He is 65 and 230 pounds. He is alert, awake, and oriented. He walks with a normal gait; no crutches or cane.Passive motion of his left hip is painless. His sensorimotor is fine. X- rays: AP pelvis and an AP and lateral of the left hip ordered, taken, and interpreted today for fracture reveal no collapse and no evidence of AVN. The joint space looks decent.Impression: Resolving left femoral head injury.Recommendation: He will be seen for a final virtual visit for his left hip in one month. If everything looks good and his symptoms are gone, he will be done. He will continue with restrictions for now. Plan<OBX.5.1><OBX.5.1.1> X-Ray I Hip-Uni </OBX.5.1.1><OBX.5.1.2> Pelvis - 2 or 3 views (XRays were ordered, obtained and interpreted</OBX.5.1.2></OBX.5.1>today in the office. Indication: pain/dysfunction.); Status:Complete; Done: 31Aug2020 Perform:SOS29; Due:14Sep2020; Last Updated By:Myriam Johns; 08/31/2020 3:17:59 PM;Ordered; For:Pain of left hip; Ordered By:Jewel Chew;Weight Bearing Status : Weight bearing Signatures Electronically signed by : Susan Flores, ; Aug 31 2020 4:13PM EST Electronically signed by : Jewel Chew M.D.; Aug 31 2020 8:12PM EST Name Value Range Interpretation Code Description Data Yeimy rce(s) Supporting Document(s) ID Date Data Source [id number] 07/31/2020 08:44:31 AM EST [facility] PCName: Myriam PrabhakarDOB: 1980Provider: Aide Chew: 07/21/2020 Reason For VisitMyriam Prabhakar is here today for Fup Left Hip. Myriam Prabhakar is an established patient here for follow up. States his pain has greatly reduced since last visit, crutch use often, still limps when walking, no pain or OTC meds, can sleep and lay on left side comfortably, no heat/ice, concerned about a small purple patch on his left foot, random sharp pain in left taylor, states he can often feel blood trying to circulate through his hip/leg areas. Patient is working at this time at regular duty. AssessmentReason for Visit:Myriam is a 40-year-old who is one month since last being seen here. 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 X-rays were unremarkable. MRI showed a nondisplaced femoral head fracture with intense marrow edema. It did not collapse. When I last saw him he was using crutches and recently has stopped using the crutches and his pain level has decreased since last visit. He still walks with a limp.Past Medical History:See intake and unchanged.Physical Examination: He is 6'5 and weighs 230 pounds. Patient is alert, awake and oriented, appropriate mood and affect. He is still with a limp, no nearly like it was. Passive motion of his hip is intact and reasonably painless. Leg lengths are the same and sensory is intact.Imaging:X-rays were not checked today.Impression:Resolving femoral head fracture. Marrow edema I am assuming is getting [id number] since his function is improving significantly. Dump the crutches and use the cane until he has no limp.Follow-up one month from now and I will get a repeat x-ray of his left hip at that visit. Plan C Cane - Aluminum Adjustable (SOS) E0100; Status:Complete; Done: [id number] Perform:SOS29; Due:[id number]; Last Updated By:Iris Cueva; 07/21/2020 3:01:05 PM;Ordered; For:Hip joint stiffness; Ordered By:Jewel Chew;ABN Signature Required : No Signatures Electronically signed by : Ирина Clifford, ; Jul 21 2020 3:22PM EST Electronically signed by : Jewel Chew M.D.; Jul 31 2020 8:44AM EST Name Value Range Interpretation Code Description Data Yeimy rce(s) Supporting Document(s) ID Date Data Source [id number] 06/26/2020 02:39:15 PM EST [facility]Name: Myriam CarolinaB: 1980Provider: JeevanTonaOS: 06/24/2020 Reason For VisitMyriam Prabhakar is here today for Fup Left Hip MRI. Myriam Prabhakar is here for evaluation of MRI results. Patient is working at this time at regular duty. 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 When I last saw him, he had complaints of left hip pain that were relatively severe and progressive over 2.5 to 3 weeks. Now it has been a month. He had an MRI scan of his hip, which showed a nondisplaced left superior femoral head fracture with intense underlying femoral head marrow edema. It hasn't collapsed. It is sort of consistent with AVN. He is now on crutches, partial weightbearing. He has less pain since he has been on crutches. He comes in today for evaluation.PAST MEDICAL HISTORY:Please see intake of 06/09/20. Unchanged.PHYSICAL EXAMINATION:He remains 6'5 and 230 pounds. He is alert, awake and oriented, with appropriate mood and affect. He is ambulating with crutches, with a limp. His pain is less severe than it was, primarily because of the crutches. Sensory and motor are intact. Leg lengths remain the same.Examination of the left hip: Passive motion of the hip is not intensely painful. IMPRESSION:Subchondral fracture/avascular necrosis of left hipRECOMMENDATION:Stay on the crutches, partial weightbearing. I'm going to run this x-ray by a bunch of my partners. The question in my mind is whether I should consider a core decompression or just watch this. I think the pain will continue to subside. I will get back to him and talk to him about what, if anything, to do with this. Signatures Electronically signed by : Anabella Small, ; Jun 25 2020 8:33AM EST Electronically signed by : Jewel Chew M.D.; Jun 26 2020 2:39PM EST Name Value Range Interpretation Code Description Data Yeimy rce(s) Supporting Document(s) ID Date Data Source [id number] 06/22/2020 01:58:00 PM EST [facility] PATIENT MR#: [id number] NAME: Myriam Tracey DATE OF : 1980REFERRING PHYSICIAN: Jewel ChewEXELISHA DATE: 06/21/2020EXAM: MRI of the left Hip without ContrastINDICATION: Health maintenance, left lateral hip painCOMPARISON: No comparison availableTECHNIQUE: Multiplanar multisequence MR imaging of the pelvis and left hip wasperformed using large wfrjz-gj-peps pelvic and small FOV dedicated hip imagingon a 1.5T GE MR scanner. Intravenous contrast was not administered.FINDINGS: There is intense marrow edema like signal within the superior-lateralfemoral head extending into the lateral femoral neck, with an underlyinghypointense signal irregular nondepressed superior femoral head subcorticalfracture. No femoral head cortical flattening or collapse. Small left hipjoint effusion with a nondisplaced anterior-superior left acetabular labraltear. No articular cartilage defect.No contralateral right hip joint effusion or right hip arthropathy.There is also moderate marrow edema like signal within the left pubic body andcentral superior pubic ramus with adjacent interstitial edema within leftadductor muscle bodies . No adductor muscle body or tendon tear and the rectusabdominis-adductor aponeurosis is intact. The gluteus minimus and medius tendon insertions are intact. No bursitis. Remaining visualized tendon origins and insertions are intact. No tendon tear. No muscle atrophy.IMPRESSION: 1. Small acute nondisplaced left superior femoral head fracture with intenseunderlying femoral head marrow edema. No subchondral collapse.2. Moderate marrow contusion/edema within the left pubic body-central superiorpubic ramus with adjacent left adductor muscle body grade 1 interstitial strain.3. Mild left hip joint effusion with nondisplaced anterior and superior leftacetabular tear. The above significant results, including acute nondisplaced left superiorfemoral head fracture was discussed with nurse Cherelle at Dr. Jewel Knutsonfiedmond via telephone at 1352 hrs. on 06/22/2020 with verification andunderstanding. Read by: Naveen AlbarranTranscribed by: Naveen Carrillo Date: 06/22/2020 1:58:20 PMElectronically signed by: Naveen Jarrell signed: 06/22/2020 1:58:47 PM Name Value Range Interpretation Code Description Data Yeimy rce(s) Supporting Document(s) ID Date Data Source [id number] 06/09/2020 06:12:14 PM EDT [facility] Name Value Range Interpretation Code Description Data Yeimy rce(s) Supporting Document(s) WBC 11.4 10*3/uL (4.1-11.0) H [facility] RBC 5.14 10*6/uL (4.60-6.10) [facility] HGB 15.7 g/dL (13.5-18.0) [facility] HCT 46.4 % (41.0-53.0) [facility] MCV 90.3 fL (80.0-95.0) [facility] MCH 30.5 pg (27.0-32.0) [facility] MCHC 33.8 g/dL (32.0-36.0) [facility] RDW 13.4 % (10.5-14.5) [facility] PLT 238 10*3/uL (150-450) [facility] MPV 9.9 fL (7.1-10.7) [facility] ID Date Data Source [id number] 06/09/2020 06:28:29 PM EDT [facility] Name Value Range Interpretation Code Description Data Yeimy rce(s) Supporting Document(s) ESR 14 mm/h (0-15) [facility] ID Date Data Source [id number] 06/09/2020 06:56:42 PM EDT [facility] Name Value Range Interpretation Code Description Data Yeimy rce(s) Supporting Document(s) C REACTIVE PROTEIN @ 0.6 mg/dL (0.0-0.5) H [facility] ID Date Data Source [id number] 06/09/2020 06:56:42 PM EDT [facility] Name Value Range Interpretation Code Description Data Yeimy rce(s) Supporting Document(s) RHEUMATOID FACTOR @ <15 IU/mL (0-15) [facility] ID Date Data Source [id number] 06/09/2020 07:08:32 PM EDT [facility] Name Value Range Interpretation Code Description Data Yeimy rce(s) Supporting Document(s) LYME IGM/IGG AB @ (NEG) [facility] A Negative serologic test for Lyme Disea seindicates no serologic evidence of infectionwith B burgdorferi at the time this specimenwas collected. A repeat specimen should be collected in 2 to 4 weeks if clinicallyindicated. ID Date Data Source [id number] 06/10/2020 12:40:19 PM EDT [facility] Name Value Range Interpretation Code Description Data [facility] rce(s) Supporting Document(s) MARIEL SCREEN @ (NEG) [facility] ID Date Data Source [id number] 06/12/2020 03:27:20 PM EDT [facility]: Myriam PrabhakarDOB: 1980Provider: Tona ChewOS: 06/09/2020 Reason For VisitSOS Patient Intake: Myriam Prabhakar is here today for New Left Hip. Myriam Prabhakar is a new patient. No recalled injury, pain and stiffness for just over a week, start up pain, can lay comfortably on left side, no assistive devices, cant bear full weight, cant walk properly when hip is in pain-claims his foot is starting to turn outwards. 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 He comes in today complaining of increasingly disabling pain in the left hip area. It has been particularly bad over the last week and a half to two weeks to the point where he has trouble even walking from his car into the school. He has not had any systemic fever or chills.and when he is at rest it is not bothering him much. In terms of previous injuries, he doesn't recall anything except for sort of a groin pull that occurred about a year ago and the pain is in a different location. PAST MEDICAL HISTORY:He is really a healthy lucille. He does have some psoriasis. He is a pack a day smoker. He is working. ALLERGIES: Motrin. PHYSICAL EXAMINATION:He is 6' 5 and weighs 230 pounds. He is alert, awake and oriented. Appropriate mood and affect. His lower extremities have no edema, no varicosity. Pulses are fine. Sensory and motor is intact. He walks with an ungodly limp, especially when he first gets up and his leg sort of rotates externally as he walks. I can passively move his hip around with minimal discomfort. He is unable to stand on that leg independent of ba lancing with his arm because of pain. IMAGING: X-RAYS: AP and lateral of his left hip were reviewed by me and look relatively normal, maybe a little bit of joint space narrowing , but nothing indicative of what this might be. <OBX.5.1> <OBX.5.1.1>IMPRESSION </OBX.5.1.1><OBX.5.1.2> PLAN: </OBX.5.1.2></OBX.5.1>Acute onset left hip pain, increasing in severity. Radiographically normal. RECOMMENDATION:CBC, sed rate, CRP, rheumatoid factor, MARIEL and a Lyme titer, also a stat MRI of his left hip and we will see him back when that is completed. 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 Plan MARIEL Screen; Status:Active; Requested for:09Jun2020; Perform:Outside Facility; Due:19Jun2020; Last Updated By:Iris Cueva; 06/09/2020 1:09:54 PM;Ordered; For:Health Maintenance; Ordered By:Jewel Chew; CBC (RBC, WBC, RDW, HCT, HGB, MCH, MCHC, MCV, MPV, PLT); Status:Active;Requested for:09Jun2020; Perform:Outside Facility; Order Comments:Please fax results to: [phone]; Due:19Jun2020; Last Updated By:Iris Cueva; 06/09/2020 1:09:54 PM;Ordered; For:Health Maintenance; Ordered By:Jewel Chew; CRP ( C-Reactive Protein ); Status:Active; Requested for:09Jun2020; Perform:Outside Facility; Due:19Jun2020; Last Updated By:Iris Cueva; 06/09/2020 1:09:54 PM;Ordered; For:Health Maintenance; Ordered By:Jewel Chew; Lyme Igm / Igg Ab @; Status:Active; Requested for:09Jun2020; Perform:Outside Facility; Due:19Jun2020; Last Updated By:Iris Cueva; 06/09/2020 1:09:54 PM;Ordered; For:Health Maintenance; Ordered By:Jewel Chew; Rheumatoid Factor ( RF ); Status:Active; Requested for:09Jun2020; Perform:Outside Facility; Due:19Jun2020; Last Updated By:Iris Cueva; 06/09/2020 1:09:54 PM;Ordered; For:Health Maintenance; Ordered By:Jewel Chew; Sed Rate ( ESR ); Status:Active; Requested for:09Jun2020; Perform:Outside Facility; Due:19Jun2020; Last Updated By:Iris Cueva; 06/09/2020 1:09:54 PM;Ordered; For:Health Maintenance; Ordered By:Jewel Chew; MRI (SOS) Referral Diagnostic Diagnostic Status: Need Information - FinancialAuthorization Requested for: 09Jun2020 Ordered;For: Health Maintenance; Ordered By: Jewel Chew Performed: Due: 23Jun2020; Last Updated By: Iris Cueva; 06/09/2020 1:11:41 PMMRI Ordered Contrast : 01: without gadoLaterality: : Left Signatures Electronically signed by : Kateryna Castillo, ; Jun 09 2020 3:00PM EST Electronically signed by : Jewel Chew M.D.; Jun 12 2020 3:27PM EST Name Value Range Interpretation Code Description Data Yeimy rce(s) Supporting Document(s) ID Date Data Source [id number] 06/05/2020 02:46:00 PM EDT [facility] H[facility] UNILATERAL LEFT 1V AND PELVIS WHEN PERFORMEDCLINICAL HISTORY: Hip pain.COMPARISON: None.TECHNIQUE: Three views.FINDINGS: There are mild degenerative changes in the lower lumbar spine. The sacroiliac joints are unremarkable. No pelvic fracture is seen.There is mild joint space narrowing in each hip. There is a small bony bump along the anterior cortex left femoral neck, which can create femoroacetabular impingement. No significant osteophyte or erosive changes are present at the joint margins. There is no fracture or dislocation.IMPRESSION: Mild degenerative joint disease left hip.During this public health emergency, we are using enhanced sterilization techniques and PPE for your protection.Dictated by: Kevon FARRIS M.D. on 06/05/2020 02:57 PM Transcribed by: jose on 06/05/2020 03:00 PMCDS G code: ,CDS Modifier: ,cc: Name Value Range Interpretation Code Description Data Yeimy rce(s) Supporting Document(s) Procedure Social History Code Duration Value Status Description Data Source(s ) Alcohol intake 05/04/2021 12:00:00 AM EDT Lifetime non-drinker (finding) completed Lifetime non-drinker (finding) [facility] Vital Signs ID Date Data Source UNK Name Value Range Interpretation Code Description Data Source(s) Diastolic blood pressure 69 mm[Hg] 69 mm[Hg] [facility] ([facility]) Heart rate 108 /min 108 /min [facility] ([facility]) Body height 77 [in_i] 77 [in_i] [facility] ([facility]) 6'5" Body weight 248.00 [lb_av] 248.00 [lb_av] MEDEN T ([facility]) Body mass index (BMI) [Ratio] 29.4 kg/m2 29.4 k g/m2 [facility] ([facility]) Systolic blood pressure 111 mm[Hg] 111 mm[Hg] M EDENT ([facility]) Body temperature 98.6 [degF] 98.6 [degF] [facility] ([facility]) Body temperature 37.0 Yumiko 37.0 Yumiko MED[facility] ( [facility]) Respiratory rate 18 /min 18 /min [facility] Body height 195.6 cm 195.6 cm [facility] Body weight 104.327 kg 104.327 kg [facility] Body mass index (BMI) [Ratio] 27.27 kg/m2 27.27 kg/m2 [facility] Respiratory rate 18 /min 18 /min [facility] ([facility]) Pattern: Unlabored Body surface area Derived from formula 2.42 m2 2.42 m2 [facility] ([facility]) Body weight 251 [lb_av] 251 [lb_av] [facility] ([facility]) Body height 75 [in_us] 75 [in_us] [facility] ([facility] Body mass index (BMI) [Ratio] 31.37 kg/m2 31.37 kg/m2 [facility] ([facility]) Intraocular pressure Right eye 18 mm[Hg] 18 mm [Hg] [facility] ([facility]) Intraocular pressure Left eye 19 mm[Hg] 19 mm[ Hg] [facility] ([facility]) SA, Applanation 10:35 Am Body weight 251 [lb_av] 251 [lb_av] [facility] ([facility]) Heart rate 124 /min 124 /min [facility] ([facility]) Pattern: Regular Body temperature 97.7 [degF] 97.7 [degF] [facility] ([facility]) Respiratory rate 16 /min 16 /min [facility] ([facility]) Pattern: Unlabored Oxygen saturation in Arterial blood by Pulse oximetry 96 % 96 % [facility] ([facility]) Room air Systolic blood pressure 140 mm[Hg] 140 mm[Hg] [facility] ([facility]) Patient Position: Sitting; Cuff Location : Left Arm; Cuff Size: Standard Diastolic blood pressure 80 mm[Hg] 80 mm[Hg] [facility] ([facility]) Patient Position: Sitting; Cuff Location : Left Arm; Cuff Size: Standard Body height 75 [in_us] 75 [in_us] [facility] ([facility]) Body mass index (BMI) [Ratio] 31.37 kg/m2 31.37 kg/m2 [facility] ([facility]) Body surface area Derived from formula 2.42 m2 2.42 m2 [facility] ([facility]) Patient Treatment Plan of Care Planned Activity Planned Date Details Description Data Source (s) CPAP SUPPLIES AND MASK (327.23) ( Device) (Free Text) 04/23/2021 12:00:00 AM EDT [facility] ([facility] Omeprazole 40 MG Delayed Release Oral Capsule 05/14/2020 12:00:00 A M EDT [facility] Azelastine HCl 0.15 % SOLN 03/31/2020 12:00:00 AM EDT [facility]
--- OUTSIDE RECORDS SUMMARY | 2021-06-17 01:54 | CCD | Continuity of Care Document ---
Author Author Hawk COTO MD Organization Unknown Address [address], [address] [place] [address] Phone [phone] Care Team Providers Care Halftone Operator Name Role Phone Lanny Gan AUTM [phone] No PCP AUTM Unavailable Problems Description No [...] after an MRI brain tumor protocol at [facility]. * Follow up:* 2 months. MRI Brain WOW prior * M54.81 Cervico-occipital neuralgia* Comments:* Responsive to occipital blocks. His last block was in March 2021. The blocks typically 6 to 8 weeks.The concurrent start of this pain along with his left-sided avascular necrosis is concerning.He is scheduled to meet with a imaging technologist. I think it is appropriate for him also to see a columnist/commentator. Functional Status Description No Information Available Mental Status Description No Information Available Referrals Description No Information Available
--- OUTSIDE RECORDS SUMMARY | 2021-06-17 01:54 | CCD | Continuity of Care Document ---
Author Author Mold Cooler, Hawk System Organization Unknown Address Unknown Phone Unavailable Care Team Providers Care Dining Chair Seat Cushion Trimmer Name Role Phone Evette Stone Unavailable Chelsea Wolf MD Unavailable Yusef Gan NP Unavailable Dut Yusef FLORENTINO Unavailable Jordana Coulter Unavailable Unavailable Problems OBESITY (E66.9) (278.00) Dut, MISHEL Holbrook MARISOL (OBSTRUCTIVE SLEEP APNEA) (G47.33) Dut, NPC Sonya Holbrook (327.23) Allergies and Adverse Reactions No Allergy Information Available Medications No Medication Information Available Social History No Social History Information Available Tobacco smoking consumption unknown Male Plan of Treatment CPAP (91519) Start: 05-Feb-2021 Intent POLYSOMNOGRAPHY (99442) Start: 05-Feb-2021 Intent Results No Known Results No Result Information Available Vital Signs 05-Feb-2021 14:08 Comments: Repeat BP 132/76 Temperature 97.7 f Pulse 124 /min Comments: Pattern: Regular Respiration Rate 16 Comments: Pattern: Unlabore d /min O2 SAT 96 % Comments: Room air BP Systolic 140 Comments: Patient Position: Sitting; mm[Hg] Cuff Location: Left Arm; Cu ff Size: Standard BP Diastolic 80 Comments: Patient Position: Sitting; mm[Hg] Cuff Location: Left Arm; Cu ff Size: Standard Weight 251 lb Height 75 in BMI 31.37 kg/m2 BSA 2.42 m2 Advance Directives HIPAA - Effective on 02/05/2021. Effective: Expiration date unspecified 05-Feb-2021 Encounters Office Visit 05-Feb-2021 14:15 Encounter Reason: To 05-Feb-2021 14:49 Sleep Evaluation - The [facility] primary physician is Dr. Lanny Gan. The [place] [facility] onset of the sleep problem has been gradual and has been occurring in a persistent pattern for years. The cours e has been an increasing. The problem is described as moderate. Daytime symptoms include daytime sleepiness, decreased energy, fatigue and dozing off during the day. The sleep problems have had an impact on the patient's driving, concentration and memory. The patient reports daytime sleepiness, pauses observed by someone else during sleep, tennis ball cover cementer awakening, not being able to get back to sleep and being a restless sleeper. Ancillary symptoms include insomnia and fragmented night sleep, while symptoms do not include cataplexy or sleep paralysis. Patient awakes 4 times at night and is awake fo r The patient wakes up for to use bathroom, unknown reason and awakened b y own snoring. During the first few minutes after awakening the patient feels very groggy after waking up. The patient sleeps in variable positions. Encounter Diagnosis: MARISOL (OBSTRUCTIVE SLEEP APNEA), OBESITY Historical Summary 03-Feb-2021 14:46 To 03-Feb-2021 14:51 [facility] [place] [facility] Payers [facility] [employer] Group Number: NONE [address] [address] [facility] [address] tel: Hawk Hickey [address] [place] [address] [place] tel:
--- OUTSIDE RECORDS SUMMARY | 2021-06-17 01:54 | CCD | Continuity of Care Document ---
Author Author Hawk COTO MD Organization Unknown Address [address], [address] [place] [address] Phone [phone] Care Team Providers Care Access Clinician Name Role Phone Lanny Gan AUTM [phone] No PCP AUTM Unavailable Problems Description No [...] after an MRI brain tumor protocol at [facility]. * Follow up:* 2 months. MRI Brain WOW prior * M54.81 Cervico-occipital neuralgia* Comments:* Responsive to occipital blocks. His last block was in March 2021. The blocks typically 6 to 8 weeks.The concurrent start of this pain along with his left-sided avascular necrosis is concerning.He is scheduled to meet with a underwriting intern. I think it is appropriate for him also to see a operations consultant. Functional Status Description No Information Available Mental Status Description No Information Available Referrals Description No Information Available
--- OUTSIDE RECORDS SUMMARY | 2021-06-17 01:54 | CCD | Continuity of Care Document ---
Author Author Blueprint Cutter, Hawk System Organization Unknown Address Unknown Phone Unavailable Care Team Providers Care Leadlighter Name Role Phone Evette Stone Unavailable Chelsea Wolf MD Unavailable Yusef Gan NP Unavailable Yusef Gusman Unavailable Jordana Coulter Unavailable Unavailable Problems OBESITY (E66.9) (278.00) MD Russell Wolf MARISOL (OBSTRUCTIVE SLEEP APNEA) (G47.33) MD Beckie Wolf Comments: A polysomnography showing an (327.23) G apnea hypoxia index of 5 events per hour Prognosis: The patient was seen using saturations d ropped to 88% that was telephone health communications. The completed on 03/20/2021. patient understands that telemedicine i s the use of electronic information and communication technologies by a healthcare provider to deliver services to individuals when he/she is located a t a different site than the provider, and understands that there is some level of risk that the individuals PHI could be heard or otherwise accessed by a third democrat while in transit. Consent for telephone health services was hereby verbally obtained in order to provide health care services to the patient via telemedicine. We talked about the slee p apnea in severity and the possibility o f proceeding with a CPAP titration to treat his sleep apnea and he understand s and agrees. We also talked about the variability from day to day and night and I and he understands. as of 23-Apr-2021 MARISOL (OBSTRUCTIVE SLEEP APNEA) (G47.33) MD Russell Wolf (327.23) G Allergies and Adverse Reactions No Known Drug Allergies (Allergy) Onset: 23-Apr-2021 Medications Aspirin 81 MG Oral Tablet; 1 (one) (81 MG) CPAP SUPPLIES AND MASK (327.23) ( Ordered: 23-Apr-2021 Sta rt: 23-Apr-2021 Device) (Free Text); Other - NOS at MD Og Wolf herrosie bedtime for 0 days G Quantity: 1 {Tablet(s)} Refills: 0 Omeprazole 20 MG Oral Capsule Delayed Release; (20 MG) Vitamin D (Ergocalciferol) 1.25 MG (06076 UT) Oral Capsule; (1.25 MG (18304 UT)) Family History Father Status: Active Comments: Diabetes, [place] Disease, Hypertension Mother Status: Active Comments: Ulcertive colitis Social History Caffeine use:; Coffee. Current work status:; Full-time. No alcohol use No drug use Tobacco use:; Current some day smoker. Occasional tobacco smoker Male Plan of Treatment CPAP SET UP (48921) Start: 23-Apr-2021 Intent POLYSOMNOGRAPHY W/CPAP (25360) Start: 23-Apr-2021 Intent CPAP (37644) Start: 05-Feb-2021 Intent POLYSOMNOGRAPHY (90669) Start: 05-Feb-2021 Intent MARISOL (OBSTRUCTIVE SLEEP APNEA) : Pt Education Sleep Apnea Indication:MARISOL (OBSTRUCTIVE SLEEP APNEA ) MARISOL (OBSTRUCTIVE SLEEP APNEA) : Notify physicians of sleep apnea diagnosis Indication:MARISOL (OBSTRUCTIVE SLEEP APNEA ) MARISOL (OBSTRUCTIVE SLEEP APNEA) : Discussed different therapeutic options and willing to proceed with CPAP Indication:MARISOL (OBSTRUCTIVE SLEEP APNEA ) MARISOL (OBSTRUCTIVE SLEEP APNEA) : Reviewe d results of sleep study Indication:MARISOL (OBSTRUCTIVE SLEEP APNEA ) Results No Known Results No Result Information Available Vital Signs 23-Apr-2021 10:38 Respiration Rate 18 Comments: Pattern: Unlabore d /min Weight 251 lb Height 75 in BMI 31.37 kg/m2 BSA 2.42 m2 05-Feb-2021 14:08 Comments: Repeat BP 132/76 Temperature [...] 02/05/2021. Effective: Expiration date unspecified 05-Feb-2021 Encounters Historical Summary 23-Apr-2021 11:00 To 23-Apr-2021 8:15 [facility] Office Office Visit 23-Apr-2021 11:00 To Encounter Reason: 23-Apr-2021 10:41 Sleep Evaluation - The [facility] primary physician is Dr. Lanny Gan. The [place] [facility] onset of the sleep problem has [...] by someone else during sleep, early childhood director awakening, not being able to get back [...] variable positions. Encounter Diagnosis: MARISOL (OBSTRUCTIVE SLEEP APNEA) Office Visit 05-Feb-2021 14:15 Encounter Reason: To 05-Feb-2021 14:49 Sleep Evaluation - The [facility] primary physician is Dr. Lanny Gan. The [facility] onset of the sleep problem has been [...] by someone else during sleep, early childhood director awakening, not being able to get back [...] 03-Feb-2021 14:46 To 03-Feb-2021 14:51 [facility] [place] [facility] Payers [facility] [employer] Group Number: NONE [address] [address] [facility] [address] tel: Hawk Hickey [address] [place] [address] [place] tel:
--- OUTSIDE RECORDS SUMMARY | 2021-06-17 01:54 | CCD | Continuity of Care Document ---
Author Author Hawk COTO MD Organization Unknown Address [address], [address] [place] [address] Phone [phone] Care Team Providers Care Cinder Block Mason Name Role Phone Lanny Gan AUTM [phone] No PCP AUTM Unavailable Problems Description No [...] after an MRI brain tumor protocol at [facility]. * Follow up:* 2 months. MRI Brain WOW prior * M54.81 Cervico-occipital neuralgia* Comments:* Responsive to occipital blocks. His last block was in March 2021. The blocks typically 6 to 8 weeks.The concurrent start of this pain along with his left-sided avascular necrosis is concerning.He is scheduled to meet with a staff registered nurse. I think it is appropriate for him also to see a acid blower. Functional Status Description No Information Available Mental Status Description No Information Available Referrals Description No Information Available
[2021-06-17] MEDS ORDERED: MORPHINE 2 MG/ML 1ML VIAL (J2270) IV PRN (03:40)
[2021-06-17] MEDS: ACETAMINOPHEN TAB 650MG DOSE (2X325MG) PO PRN ×2 (04:11→13:43)
[2021-06-17] MEDS: PIPERACILLIN/TAZOBACTAM SOD 4.5 GM in D5W MINI-BAG PLUS 50 ML IV SCH ×3 (05:58→18:27)
[2021-06-17 08:18] LABS: HEMATOCRIT 41.7 % (42.0-52.0); MEAN CORPUSCULAR HEMOGLOBIN 29.5 pg (27.0-33.0); MEAN CORPUSCULAR HGB CONC 33.1 g/dl (32.0-36.5); MEAN CORPUSCULAR VOLUME 89.1 fl (80.0-96.0); PLATELET COUNT, AUTOMATED 199 10^3/uL (150-450); RED BLOOD COUNT 4.68 10^6/uL (4.30-6.10); WHITE BLOOD COUNT 17.1 10^3/uL (4.0-10.0)
[2021-06-17 08:24] LABS: HEMOGLOBIN 13.8 g/dl (13.5-17.5)
[2021-06-17 08:36] LABS: INR 1.19; PROTHROMBIN TIME 15.6 SECONDS (12.7-14.5)
[2021-06-17 08:37] LABS: PARTIAL THROMBOPLASTIN TIME 39.8 SECONDS (25.9-37.0)
[2021-06-17 08:51] LABS: BLOOD UREA NITROGEN 12 MG/DL (7-18); CALCIUM LEVEL 8.5 MG/DL (8.5-10.1); CARBON DIOXIDE LEVEL 23 MEQ/L (21-32); CHLORIDE LEVEL 109 MEQ/L (98-107); CREATININE FOR GFR 0.96 MG/DL (0.70-1.30); GLOMERULAR FILTRATION RATE > 60.0 (>60); GLUCOSE, FASTING 98 MG/DL (70-100); POTASSIUM SERUM 3.9 MEQ/L (3.5-5.1); SODIUM LEVEL 140 MEQ/L (136-145)
[2021-06-17] MEDS: D5W/0.9% SODIUM CHLORIDE 1,000 ML IV SCH ×3 (09:00→21:41)
--- NOTE | 2021-06-17 15:53 | IPNPDOC ---
Text Note Date of Service The patient was seen on 06/17/21. NOTE Subjective: Patient is a 41-year-old male presented to the hospital severe mid and lower abdominal pain that began 3 days ago. Patient said the pain was associated with rectal pain that improved after having a bowel movement. Patient states he been having brown water for diarrhea. Patient was found to have diverticulitis. Patient states he was feeling much better. Patient had an NG tube placed which she said was very uncomfortable. Patient states he was feeling otherwise better than he did when he presented. Review of systems: General: Patient denies fevers HEENT: Patient denies headaches Cardiovascular: Patient denies chest pain Respiratory: Patient denies shortness of breath, cough GI: Patient reports improvement in his abdominal pain : Patient denies increased frequency or pain with urination Extremities: Patient denies swelling or pain in extremities Neurological: Patient denies numbness or tingling in legs Physical exam: Vitals: See below General: Alert and oriented male patient who was sitting in bed with NG tube in place when I walked in. Patient did not appear to be in any acute distress. HEENT: Normocephalic, atraumatic, moist mucous membranes. Neck: No lymphadenopathy or thyromegaly Cardiac: Regular rate and rhythm, no murmurs, normal S1, normal S2 Pulm: Clear to auscultation bilaterally. No wheezes, rhonchi, rales Abd: Nondistended, mild tenderness to palpation especially in the left lower quadrant, no rebound tenderness, normal bowel sounds Ext: No edema bilateral lower extremities Labs: See below Imaging: No new imaging is been performed Assessment/plan: 41-year-old male presented to the hospital with acute diverticulitis with microperforations who was admitted for sepsis. 1. Sepsis secondary to acute diverticulitis with perforation. SIRS criteria include tachycardia and leukocytosis. Lactic acid within normal limits. Patient is on IV fluids and will continue with antibiotics. General surgery saw the patient and we will continue to monitor. 2. Acute diverticulitis with microperforations. Patient initially had NG tube placed but after speaking with Dr. Linder of general surgery, NG tube was no longer necessary this morning and has been since removed. Patient's diet has been advanced to n.p.o. with sips and chips of ice. 3. Tobacco abuse. Smoking cessation education. 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
[2021-06-17 17:46] VITALS: BP 130/84
--- NOTE | 2021-06-17 19:20 | CR.PDOC ---
General Surgery Consultation Date of Consultation 06/17/21 History and Physical CONSULT REPORT FOR: Dr. Farley (hospitalist service) REASON FOR CONSULTATION: abdominal pain, diverticulitis HISTORY OF PRESENT ILLNESS: Patient presents to the emergency room overnight reporting 1 week history of ongoing lower abdominal pain that he reports is cramping.. Reports this started just about Monday. He was not particularly constipated. This came about suddenly. Reports abdominal with associated fecal urgency, loose stool but nonbloody with improvement of the discomfort after the bowel movement. No fevers or chills being reported. He reports anorexia. He could recall a similar episode months back that resolved on its own after couple days but he was not seen by a healthcare provider at that time and was not treated for anything. He presented himself to the urgent care at [facility] and was subsequently sent to the emergency room. He has no prior colonoscopies. He denies any significant personal or family history for inflammatory bowel disease nor colorectal or gastrointestinal malignancies. He denies any ongoing unexplained weight loss. PAST MEDICAL HISTORY: 1. Patient denies any chronic medical problems except for some unspecified dermatitis on his foot PAST SURGICAL HISTORY: INCLUDES: 1. Tonsillectomy with adenoidectomy 2. Denies any abdominal surgeries 3. Denies any prior colonoscopy ALLERGIES: Please see below. FAMILY HISTORY: Denies any significant family history for GI malignancies, colorectal malignancy, inflammatory bowel disease HOME MEDICATIONS: Please see below. REVIEW OF SYSTEMS: GENERAL: [Denies chills, weight gain, unexplained weight loss,. HEENT: Denies blurred vision and double vision. Denies ear symptoms. Denies hoarseness. NECK: Denies any neck pain CARDIOVASCULAR: Denies chest pain and palpitations. MUSCULOSKELETAL: Denies arthralgias, back pain. SKIN: Denies rash. NEUROLOGIC: Denies headache. HEMATOLOGY/ONCOLOGY: Denies bleeding or clotting disorder. PULMONARY: Denies chronic cough, dyspnea and wheezing. GASTROINTESTINAL: See HPI. GENITOURINARY: Denies dysuria, frequency, hematuria and nocturia. ENDOCRINE: Denies polydipsia, polyphagia, polyuria, heat or cold intolerance. INFECTIOUS: Denies any recent upper respiratory tract infection, UTI, need for use of antibiotics. NUTRITION: Reports mild anorexia. PHYSICAL EXAMINATION: VITALS SIGNS: Please see below. GENERAL APPEARANCE: Patient seen laying flat on the bed was asleep when I came in, easily wakes up. Relatively comfortable in appearance. SKIN: Warm moist. HEENT: Normocephalic, atraumatic, anicteric sclerae. Lips and mucosa appear moist. NECK: Supple, no thyromegaly. No obvious jugular venous distention. LUNGS: Clear to auscultation bilaterally. No wheezing appreciated. HEART: No chest wall abnormalities. Regular rate and rhythm with no murmurs appreciated. ABDOMEN: Abdomen is mildly obese. I do not see any prior surgical scars. No notable umbilical or groin herniation. Mild to moderately distended, tympanic to percussion, soft, hypoactive bowel sounds. Mild tenderness to deep palpation over the left lower quadrant and suprapubic area without rebound or guarding. EXTREMITIES: Extremities have no deformities. No edema identified ANCILLARIES:. LABORATORY DATA: Please see below. IMAGING STUDIES:. I reviewed with him the results of the CT scan abdomen and pelvis. It was showing what most likely is acute diverticulitis with a contained perforation pericolic bubbles of extraperitoneal air and associated inflammatory reaction. There is no notable abscess. There are no bubbles of air outside of the pericolic area. IMPRESSION AND PLAN: Acute Diverticulitis with contained perforation, no abscess Patient has what looks to be contained perforation secondary to perforated diverticulitis. He has minimal systemic inflammatory response from this including low-grade fever, mild tachycardia. He had significant leukocytosis. There is no contained collection or abscess that was seen on CT. He has localized tenderness over the left lower abdomen and suprapubic area. Continue with IV antibiotics. Keep him n.p.o. with minimal intake of water and ice chips to get him comfortable until his pain gets better and then we can slowly introduce oral diet. I expect his discomfort to markedly improve within the next 48 to 72 h. If not then we should repeat CT for follow-up to look for any abscess that may form. If his symptoms progress then he may need emergent/urgent surgery which usually would mean sigmoid colectomy with a high chance of needing colostomy. I communicated this to the patient. If his symptoms improved to the point that he is able to tolerate diet, his systemic inflammatory response and leukocytosis markedly improved or resolved then we can switch him to oral antibiotics and plan for interval colonoscopy later on. We also discussed need for high-fiber diet to prevent recurrent diverticulitis. Vital Signs Vital Signs Date Time Temp Pulse Resp B/P (MAP) Pulse Ox O2 Delivery O2 Flow Rate FiO2 06/17/21 17:46 99.4 100 18 130/84 (99) 96 Room Air I&Os I&O- Last 24 Hours up to 6 AM 06/17/21 06:00 Intake Total 3050 ml Balance 3050 ml Laboratory Data Labs 24H Laboratory Tests 2 06/16/21 22:39: Immature Granulocyte % (Auto) 0.7, Neutrophils (%) (Auto) 82.3H, Lymphocytes (%) (Auto) 11.0L, Monocytes (%) (Auto) 5.7, Eosinophils (%) (Auto) 0.1, Basophils (%) (Auto) 0.2, Neutrophils # (Auto) 19.5H, Lymphocytes # (Auto) 2.6, Monocytes # (Auto) 1.3H, Eosinophils # (Auto) 0.0, Basophils # (Auto) 0.1, Nucleated Red Blood Cells % (auto) 0.0, Total Bilirubin 1.3H, Direct Bilirubin 0.5H, Aspartate Amino Transf (AST/SGOT) 9, Alanine Aminotransferase (ALT/SGPT) 33, Alkaline Phosphatase 91, Total Protein 7.8, Albumin 3.6, Albumin/Globulin Ratio 0.9, Lipase 29L 06/16/21 22:47: POC Glucose (Misc Panel) 104, POC Sodium (Misc Panel) 138, POC Potassium (Misc Panel) 3.6, POC Chloride (Misc Panel) 103, POC Total CO2 (Misc Panel) 19.0L, POC Blood Urea Nitrogen (Misc Panel 14, POC Ionized Calcium (Misc Panel) 4.7, POC Creatinine (Misc Panel) 1.1, POC Hematocrit (Misc Panel) 52.0H 06/16/21 23:47: Lactic Acid Level 1.6 06/17/21 07:28: Nucleated Red Blood Cells % (auto) 0.0, Prothrombin Time 15.6H, Prothromb Time International Ratio 1.19, Activated Partial Thromboplast Time 39.8H, Anion Gap 8, Glomerular Filtration Rate > 60.0, Calcium Level 8.5 06/17/21 13:18: Bedside Glucose (Misc Panel) 98 06/17/21 18:26: Bedside Glucose (Misc Panel) 112H CBC/BMP Laboratory Tests 06/16/21 22:39 06/17/21 07:28 Microbiology Microbiology 06/16/21 Blood Culture, Received Pending 06/16/21 Blood Culture, Received Pending Home Medications No Active Prescriptions or Reported Meds Allergies Coded Allergies: ibuprofen (Verified Allergy, Unknown, 06/16/21) EYAD WATKINS MD Jun 17, 2021 19:20
[2021-06-17 20:00] VITALS: BP 131/82
[2021-06-18] MEDS: PIPERACILLIN/TAZOBACTAM SOD 4.5 GM in D5W MINI-BAG PLUS 50 ML IV SCH ×5 (00:53→23:05)
[2021-06-18 04:00] VITALS: BP 134/87
[2021-06-18 06:11] LABS: HEMATOCRIT 42.7 % (42.0-52.0); HEMOGLOBIN 14.4 g/dl (13.5-17.5); MEAN CORPUSCULAR HEMOGLOBIN 29.6 pg (27.0-33.0); MEAN CORPUSCULAR HGB CONC 33.7 g/dl (32.0-36.5); MEAN CORPUSCULAR VOLUME 87.9 fl (80.0-96.0); PLATELET COUNT, AUTOMATED 240 10^3/uL (150-450); RED BLOOD COUNT 4.86 10^6/uL (4.30-6.10); WHITE BLOOD COUNT 15.4 10^3/uL (4.0-10.0)
[2021-06-18 06:39] LABS: BLOOD UREA NITROGEN 12 MG/DL (7-18); CALCIUM LEVEL 8.8 MG/DL (8.5-10.1); CARBON DIOXIDE LEVEL 27 MEQ/L (21-32); CHLORIDE LEVEL 107 MEQ/L (98-107); CREATININE FOR GFR 0.87 MG/DL (0.70-1.30); GLOMERULAR FILTRATION RATE > 60.0 (>60); GLUCOSE, FASTING 129 MG/DL (70-100); POTASSIUM SERUM 3.7 MEQ/L (3.5-5.1); SODIUM LEVEL 137 MEQ/L (136-145)
[2021-06-18 08:00] VITALS: BP 133/88
--- NOTE | 2021-06-18 09:49 | IPNPDOC ---
Text Note Date of Service The patient was seen on 06/18/21. NOTE General surgery. Dr. Watkins The patient is a 41-year-old male admitted with acute diverticulitis, contained perforation, no abscess. This morning, the patient states he is feeling much better, abdominal pain has decreased. Denies nausea or vomiting. Reports some belching, reports watery bowel movement this morning. Temperature 99.4 Heart rate 100 respiratory rate 18, blood pressure 130/84, 96% room air. S1-S2 regular, tachycardic Lungs clear to auscultation Abdomen soft, nondistended, still some mild tenderness in the left lower quadrant but no guarding, no grimacing. WBC 15.4, this is decreased from 17.1. Hemoglobin 14.4 Assessment/plan Diverticulitis with contained perforation, no abscess. The patient is reviewed and examined as per Dr. Watkins this morning. IV fluids, IV Zosyn Trial of clear liquids, plan to advance to low residue diet as tolerated. Plan for outpatient colonoscopy. Continue to monitor. VS,Fishbone, I+O VS, Fishbone, I+O Laboratory Tests 06/18/21 05:54 Vital Signs Date Time Temp Pulse Resp B/P (MAP) Pulse Ox O2 Delivery O2 Flow Rate FiO2 06/17/21 17:46 99.4 100 18 130/84 (99) 96 Room Air I&O- Last 24 Hours up to 6 AM 06/18/21 05:59 Intake Total 100 ml Balance 100 ml Attending Note Attending Note I saw the patient independent of Ms. Hernandez. I reviewed her notes and agree with her findings. Patient clinically better. He has not had any significant febrile episodes of he does look to be still mildly tachycardic in the low 100. Abdomen is much softer, less distended and only very minimal tenderness noted over the left lower quadrant area on deep palpation without any rebound or guard ing. Labs reviewed. Leukocytosis is improving. Impression and plan Acute diverticulitis with contained perforation Clinically improving. Continue with antibiotics. I have started him on clear liquids. Have discussed the case with Dr. Moss as he entered the room at the end of my visit to the patient. He can advanced the diet to a low residue diet if he tolerates liquids and he can switch to oral antibiotics if oral intake is tolerated. Continue to course of about 14 days. He can switch to a high-fiber diet once his discomfort has fully resolved. I recommend for him to have an interval colonoscopy 2 or 3 months after to document healing as well as to assess severity of diverticulosis as well as rule out other etiology. We can see him in the clinic as an outpatient if he gets discharged this weekend. Jackie Hernandez Jun 18, 2021 09:49 EYAD WATKINS MD Jun 19, 2021 07:46
[2021-06-18] MEDS: ACETAMINOPHEN TAB 650MG DOSE (2X325MG) PO PRN (10:33)
[2021-06-18] MEDS: D5W/0.9% SODIUM CHLORIDE 1,000 ML IV SCH ×2 (11:07→23:05)
[2021-06-18 12:00] VITALS: BP 136/90
[2021-06-18] MEDS: ONDANSETRON 4MG/2ML VIAL IV PRN (15:06)
[2021-06-18 16:00] VITALS: BP 134/84
--- NOTE | 2021-06-18 16:12 | IPNPDOC ---
Text Note Date of Service The patient was seen on 06/18/21. NOTE Subjective: Patient is a 41-year-old male presented to hospital severe mid and lower abdominal pain that began 3 days prior to his admission. Patient was diagnosed with acute diverticulitis. Patient is feeling better today but is still experiencing some abdominal pain. Patient's diet was advanced morning to clear liquids but he is experiencing some gas pain. Patient is otherwise feeling better than when he initially presented to the emergency department. Review of systems: General: Patient denies fevers HEENT: Patient denies headaches Cardiovascular: Patient denies chest pain Respiratory: Patient denies shortness of breath, cough GI: Patient reports nausea but no vomiting and decreased abdominal pain : Patient denies increased frequency or pain with urination Extremities: Patient denies swelling or pain in extremities Neurological: Patient denies numbness or tingling in legs Physical exam: Vitals: See below General: Alert and oriented male patient who was laying in bed when I walked in the room. Patient not appear to be in any acute distress. HEENT: Normocephalic, atraumatic, moist mucous membranes. Neck: No lymphadenopathy or thyromegaly Cardiac: Regular rate and rhythm, no murmurs, normal S1, normal S2 Pulm: Clear to auscultation bilaterally. No wheezes, rhonchi, rales Abd: Nondistended, mild tenderness to palpation especially in the left lower quadrant, no rebound tenderness, normal bowel sounds Ext: No edema bilateral lower extremities Labs: See below Imaging: No new imaging been performed Assessment/plan: 41-year-old male presented to the hospital with acute diverticulitis with microperforations was admitted for sepsis 1. Sepsis secondary to acute diverticulitis with microperforations. SIRS criteria include tachycardia and leukocytosis. Leukocytosis is improving. Lactic acid within normal limits. Patient is on IV fluids and will continue with antibiotics. Patient's diet has been advanced to clear liquids and will continue to monitor. Patient can be downgraded to medical surgical status. 2. Acute diverticulitis with microperforation. Patient had NG tube placed but this has been since been removed. Advance diet clear liquids. Once tolerating clear liquids we will end up on a low residue diet. Encourage patient to eat high-fiber foods once discharged and diverticulitis has resolved. Patient will need to follow-up with general surgery for outpatient colonoscopy. 3. Tobacco abuse. Smoking cessation education. 4. Isolated hyperbilirubinemia secondary to Gilbert's syndrome DVT Prophylaxis: Teds and sequentials Disposition: Pending advancement of the patient's diet. VS,Fishbone, I+O VS, Fishbone, I+O Laboratory Tests 06/18/21 05:54 Vital Signs Date Time Temp Pulse Resp B/P (MAP) Pulse Ox O2 Delivery O2 Flow Rate FiO2 06/18/21 12:00 98.7 92 18 136/90 (105) 98 Room Air I&O- Last 24 Hours up to 6 AM 06/18/21 06:00 Intake Total 640 ml Balance 640 ml DILLON CASTILLO DO Jun 18, 2021 16:12
[2021-06-18 19:18] VITALS: BP 132/86
[2021-06-19] MEDS: ONDANSETRON 4MG/2ML VIAL IV PRN (00:50)
[2021-06-19 02:00] VITALS: BP 137/80
[2021-06-19] MEDS: PIPERACILLIN/TAZOBACTAM SOD 4.5 GM in D5W MINI-BAG PLUS 50 ML IV SCH (05:06)
[2021-06-19 06:00] VITALS: BP 120/72
[2021-06-19 07:51] LABS: HEMATOCRIT 40.9 % (42.0-52.0); HEMOGLOBIN 13.3 g/dl (13.5-17.5); MEAN CORPUSCULAR HEMOGLOBIN 29.4 pg (27.0-33.0); MEAN CORPUSCULAR HGB CONC 32.5 g/dl (32.0-36.5); MEAN CORPUSCULAR VOLUME 90.3 fl (80.0-96.0); PLATELET COUNT, AUTOMATED 263 10^3/uL (150-450); RED BLOOD COUNT 4.53 10^6/uL (4.30-6.10); WHITE BLOOD COUNT 11.8 10^3/uL (4.0-10.0)
[2021-06-19 08:09] LABS: BLOOD UREA NITROGEN 12 MG/DL (7-18); CALCIUM LEVEL 8.4 MG/DL (8.5-10.1); CARBON DIOXIDE LEVEL 25 MEQ/L (21-32); CHLORIDE LEVEL 111 MEQ/L (98-107); CREATININE FOR GFR 0.92 MG/DL (0.70-1.30); GLOMERULAR FILTRATION RATE > 60.0 (>60); GLUCOSE, FASTING 102 MG/DL (70-100); MAGNESIUM LEVEL 1.9 MG/DL (1.8-2.4); POTASSIUM SERUM 3.6 MEQ/L (3.5-5.1); SODIUM LEVEL 142 MEQ/L (136-145)
[2021-06-19 10:00] VITALS: BP 130/82
[2021-06-19] MEDS: D5W/0.9% SODIUM CHLORIDE 1,000 ML IV SCH ×2 (10:36→21:28)
[2021-06-19] MEDS: CIPROFLOXACIN 500MG TABLET PO SCH ×2 (10:36→17:23)
--- NOTE | 2021-06-19 12:18 | IPNPDOC ---
Text Note Date of Service The patient was seen on 06/19/21. NOTE Subjective: Patient is a 41-year-old male presented to hospital with severe mid and lower abdominal pain that began 3 days prior to his admission. Patient was diagnosed with acute diverticulitis. Patient is feeling much better today. Patient says that when he gets the IV Zosyn he becomes nauseous. Patient is wondering if this can be discontinued. Patient is wanting to go home today. Patient has passed some flatus but has not had a bowel movement since being hospitalized. Patient says that the abdominal pain has greatly improved and he was able to eat chicken broth and other clear liquids without any difficulties. Review of systems: General: Patient denies fevers HEENT: Patient denies headaches Cardiovascular: Patient denies chest pain Respiratory: Patient denies shortness of breath, cough GI: Patient reports decreased abdominal pain but does report nausea with Zosyn : Patient denies increased frequency or pain with urination Extremities: Patient denies swelling or pain in extremities Neurological: Patient denies numbness or tingling in legs Physical exam: Vitals: See below General: Alert and oriented male patient who was sitting up in bed when I walked in. Patient did not appear to be in acute distress HEENT: Normocephalic, atraumatic, moist mucous membranes. Neck: No lymphadenopathy or thyromegaly Cardiac: Regular rate and rhythm, no murmurs, normal S1, normal S2 Pulm: Clear to auscultation bilaterally. No wheezes, rhonchi, rales Abd: Nondistended, nontender to palpation, normal bowel sounds Ext: No edema bilateral lower extremities Labs: See below Imaging: No new imaging is been performed Assessment/plan: 41-year-old male presented to hospital acute diverticulitis with microperforations was admitted for sepsis. 1. Sepsis secondary to acute diverticulitis microperforations. SIRS criteria included tachycardia and leukocytosis. Leukocytosis is improving. Lactic acid was within normal limits. Patient is on IV fluids and is now tolerating a clear liquid diet. We will advance this to full liquids. 2. Acute diverticulitis. Zosyn has been stopped. Patient has been switched to ciprofloxacin and metronidazole p.o. Patient's diet will be advanced as tolerated. Patient will need a bowel movement but may be able to be discharged in the next 24 to 48 hours. 3. Tobacco abuse. Smoking cessation education provided. 4. 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 VS,Fishbone, I+O VS, Fishbone, I+O Laboratory Tests 06/19/21 07:38 Vital Signs Date Time Temp Pulse Resp B/P (MAP) Pulse Ox O2 Delivery O2 Flow Rate FiO2 06/19/21 10:00 99.5 73 19 130/82 (98) 97 Room Air I&O- Last 24 Hours up to 6 AM 06/19/21 06:00 Intake Total 3140 ml Output Total 100 ml Balance 3040 ml DILLON CASTILLO DO Jun 19, 2021 12:18
[2021-06-19] MEDS: metroNIDAZOLE (FLAGYL) 500MG TABLET PO SCH ×2 (13:25→21:27)
[2021-06-19 14:00] VITALS: BP 147/92
--- NOTE | 2021-06-19 14:04 | IPN ---
PROGRESS NOTE DATE: 06/19/2021 HISTORY: Patient is a 41-year-old man who was admitted on June 16 with a contained perforation of a sigmoid diverticulum. He was seen in consultation by Dr. Linder. Patient has been treated with piperacillin/tazobactam, and that was changed today to oral ciprofloxacin and Flagyl. Patient reports that his pain has diminished significantly, and he has been tolerating clear liquids well. Vital signs show that he has been afebrile over the past 24 hours. His pulse in the 70s to low 90s, and his blood pressure is excellent with a normal room air oxygen saturation. Intake and output show that yesterday he had 2640 recorded in with three voids and several bowel movements noted but not measured. PHYSICAL EXAMINATION: Patient is lying quietly on the hospital bed when I entered. He is alert and oriented. He moves comfortably in bed. He is alert, oriented, and cooperative with his exam. Heart and lung exams are unremarkable. The abdomen is flat. He has bowel sounds present, and the abdomen is soft. There is no definite tenderness on palpation in his left lower quadrant at this time. LABORATORY STUDIES: Show that today he has a white count of 12, which is down from 15 yesterday and 24 on June 16. His hemoglobin is 13 with a hematocrit of 41 and a platelet count of 263,000. Chemistry profile is not markedly abnormal with a C-reactive protein which is 12 today. There are no prior measures of this level for comparison. IMPRESSION: Patient appears to be making good progress on his antibiotics for his contained perforation of the sigmoid colon. His pain and tenderness have resolved. He is tolerating clear liquids, and I note that he was advanced to full liquids today by the hospitalist. RECOMMENDATIONS: The patient can be advanced on his diet as tolerated, and he certainly would seem to be a good candidate for discharge within the next day or two at the most. Patient will remain on antibiotics to complete at least a 7-10 day course and can followup with Dr. Linder after his discharge. OLEG
[2021-06-19 22:00] VITALS: BP 129/83
[2021-06-20 02:00] VITALS: BP 124/77
[2021-06-20] MEDS: metroNIDAZOLE (FLAGYL) 500MG TABLET PO SCH (05:27)
[2021-06-20] MEDS: CIPROFLOXACIN 500MG TABLET PO SCH (05:27)
[2021-06-20 06:00] VITALS: BP 124/79
[2021-06-20 06:57] LABS: HEMOGLOBIN 12.9 g/dl (13.5-17.5); MEAN CORPUSCULAR HEMOGLOBIN 29.3 pg (27.0-33.0); MEAN CORPUSCULAR HGB CONC 32.3 g/dl (32.0-36.5); MEAN CORPUSCULAR VOLUME 90.7 fl (80.0-96.0); PLATELET COUNT, AUTOMATED 265 10^3/uL (150-450); RED BLOOD COUNT 4.41 10^6/uL (4.30-6.10); WHITE BLOOD COUNT 10.7 10^3/uL (4.0-10.0)
[2021-06-20 07:24] LABS: BLOOD UREA NITROGEN 11 MG/DL (7-18); CALCIUM LEVEL 8.4 MG/DL (8.5-10.1); CARBON DIOXIDE LEVEL 26 MEQ/L (21-32); CHLORIDE LEVEL 109 MEQ/L (98-107); CREATININE FOR GFR 0.88 MG/DL (0.70-1.30); GLOMERULAR FILTRATION RATE > 60.0 (>60); GLUCOSE, FASTING 86 MG/DL (70-100); MAGNESIUM LEVEL 1.9 MG/DL (1.8-2.4); POTASSIUM SERUM 3.5 MEQ/L (3.5-5.1); SODIUM LEVEL 141 MEQ/L (136-145)
[2021-06-20] MEDS ORDERED: CIPR-249 PO (08:12)
[2021-06-20] MEDS ORDERED: METR-265 PO (08:12)
--- NOTE | 2021-06-20 11:24 | DS.PDOC ---
Discharge Summary General Date of Admission Jun 17, 2021 at 01:39 Date of Discharge 06/20/2021 Attending Physician: DILLON CASTILLO DO Specialist/Consultants Involve: EYAD LINDER MD Specialist/Consultants Involve Nikolay Coughlin MD General surgery Discharge Summary PROCEDURES PERFORMED DURING STAY: None. ADMITTING DIAGNOSES: 1. Sepsis secondary to acute diverticulitis with perforation. 2. Tobacco abuse 3. Isolated hyperbilirubinemia secondary to to Gilbert's syndrome DISCHARGE DIAGNOSES: 1. Sepsis secondary to acute diverticulitis microperforations. 2. Acute diverticulitis 3. Tobacco abuse 4. Isolated hyperbilirubinemia secondary to Gilbert's syndrome COMPLICATIONS/CHIEF COMPLAINT: Diverticulitis Of Colon W/ Perforation, Sepsis. HISTORY OF PRESENT ILLNESS: Patient is a 41-year-old male presented with a chief complaint of severe mid and lower abdominal pain that began on Monday, . Patient states the pain was also associated rectal pain that improved after having a bowel movement. Patient denied having any diarrhea or blood mixed with the stools but has had loose BMs. He also denied having fever at home and has had chills. Patient had a similar episode of abdominal pain a few months ago that resolved on its own. He was sent to the hospital after being evaluated in urgent care center in plastic diet. CT of the abdomen revealed diverticulitis with perforation. These findings were discussed with the general surgery who recommended keeping the patient n.p.o.. HOSPITAL COURSE: Patient was initially started on IV Zosyn and had an NG tube placed however, patient did not appear distended and NG tube was removed. Patient abdominal pain did improve in the first 24 hours of the patient's hospitalization. Patient continued to improve and was started on a clear liquid diet. Patient tolerated clear liquid diet well and recommendations were to increase to a full liquid diet then to a low residue diet which the patient to be discharged on. On 06/19/2021, patient was switched from IV Zosyn to p.o. ciprofloxacin and metronidazole. Patient did well and did not have any abdominal pain. Patient was seen by general surgery on 06/19/2021 who stated the patient would be most likely able to be discharged in the next day or so. On the morning of 06/20/2021, patient had tolerated low residue diet for both dinner and breakfast this morning, had a loose bowel movement without any blood in it. Patient states that the abdominal pain had resolved and patient was deemed ready for discharge and was discharged home on 06/20/2021. Patient was instructed to continue taking antibiotics as instructed and to follow-up with Dr. Linder of general surgery who recommended a colonoscopy once the inflammation has calmed down. Patient was instructed to follow a low residue diet and make sure to eat a high-fiber diet once the patient is fully healed. DISCHARGE MEDICATIONS: Please see below. ALLERGIES: Please see below. PHYSICAL EXAMINATION ON DISCHARGE: VITAL SIGNS: Please see below. General: Alert and oriented male patient who was sitting up in bed when I walked in. Patient did not appear to be in any acute distress. HEENT: Normocephalic, atraumatic, moist mucous membranes. Neck: No lymphadenopathy or thyromegaly Cardiac: Regular rate and rhythm, no murmurs, normal S1, normal S2 Pulm: Clear to auscultation bilaterally. No wheezes, rhonchi, rales Abd: Nondistended, nontender to palpation, normal bowel sounds Ext: No edema bilateral lower extremities LABORATORY DATA: Please see below. IMAGING: CT of the abdomen and pelvis with IV contrast performed on 06/16/2021 was reported to show acute diverticulitis involving the distal descending colon with focal perforation but no abscess or obstruction. Adjacent left lower quadrant mildly dilated small bowel loops which may be secondary inflammatory change from the perforated diverticulitis or could less likely be a focal small bowel obstruction related to adhesions if the patient has had prior surgery PROGNOSIS: Good ACTIVITY: As tolerated. DIET: Low residue diet, high-fiber diet DISCHARGE PLAN: Discharge home DISPOSITION: Home, Self-Care. DISCHARGE INSTRUCTIONS: 1. Follow-up with primary care provider within 3 to 5 days of discharge. 2. Continue taking ciprofloxacin 500 mg twice daily metronidazole 500 mg every 8 hours for the next 6 days 3. Follow-up with Dr. Linder within 1 to 2 weeks of discharge 4. Return to the emergency department symptoms worsen ITEMS TO FOLLOWUP ON ON OUTPATIENT: 1. Diverticulitis to resolution. DISCHARGE CONDITION: Stable. TIME SPENT ON DISCHARGE: 35 minutes. Vital Signs/I&Os Vital Signs Date Time Temp Pulse Resp B/P (MAP) Pulse Ox O2 Delivery O2 Flow Rate FiO2 06/20/21 06:00 97.5 82 20 124/79 (94) 97 Room Air I&O- Last 24 Hours up to 6 AM 06/20/21 06:00 Intake Total 2410 ml Output Total 970 ml Balance 1440 ml Laboratory Data Labs 24H Laboratory Tests 2 06/20/21 05:53: Nucleated Red Blood Cells % (auto) 0.0, Anion Gap 6L, Glomerular Filtration Rate > 60.0, Calcium Level 8.4L, Magnesium Level 1.9 CBC/BMP Laboratory Tests 06/20/21 05:53 Microbiology Microbiology 06/16/21 Blood Culture - Preliminary, Resulted No Growth after 72 hours. All specime... 06/16/21 Blood Culture - Preliminary, Resulted No Growth after 72 hours. All specime... Discharge Medications Scheduled Ciprofloxacin HCl (Cipro) 500 Mg Tablet, 500 MG PO BID@ Metronidazole (Metronidazole) 500 Mg Tablet, 500 MG PO Q8H Allergies Coded Allergies: ibuprofen (Verified Allergy, Unknown, 06/16/21) DILLON CASTILLO DO Jun 20, 2021 11:24
== END 2021-06-20 10:05 | disposition home or self-care (01) | DRG 720 ==
LOC: M ED 20:44 → M ED INP 06-17 01:39 → ENRESERV 06-17 16:32 → M PCU 06-17 17:30 → M MSPAV 06-18 19:13
PROVIDERS: ADMIT Internal Medicine; ATTEND Family Medicine
DX: A41.9 Sepsis, unspecified organism (principal); K57.20 Diverticulitis of large intestine with perforation and abscess without bleeding; F17.200 Nicotine dependence, unspecified, uncomplicated; Z88.6 Allergy status to analgesic agent; E80.4 Gilbert syndrome

== ENCOUNTER → 2021-07-06 | Outpatient (CLI) | payer BC ==
[~2021-07-06] MED LIST: CIPR-249 PO; METR-265 PO
[2021-07-06 11:39] LABS: HEMATOCRIT 48.4 % (42.0-52.0); HEMOGLOBIN 15.7 g/dl (13.5-17.5); MEAN CORPUSCULAR HEMOGLOBIN 29.1 pg (27.0-33.0); MEAN CORPUSCULAR HGB CONC 32.4 g/dl (32.0-36.5); MEAN CORPUSCULAR VOLUME 89.6 fl (80.0-96.0); PLATELET COUNT, AUTOMATED 392 10^3/uL (150-450); WHITE BLOOD COUNT 16.8 10^3/uL (4.0-10.0)
[2021-07-06 12:14] LABS: BLOOD UREA NITROGEN 11 MG/DL (7-18); CALCIUM LEVEL 9.5 MG/DL (8.5-10.1); CARBON DIOXIDE LEVEL 28 MEQ/L (21-32); CHLORIDE LEVEL 103 MEQ/L (98-107); CREATININE FOR GFR 0.99 MG/DL (0.70-1.30); GLOMERULAR FILTRATION RATE > 60.0 (>60); GLUCOSE, FASTING 85 MG/DL (70-100); POTASSIUM SERUM 4.9 MEQ/L (3.5-5.1); SODIUM LEVEL 137 MEQ/L (136-145)
== END ==
LOC: M LAB 10:44
PROVIDERS: ATTEND Physician Assistant
DX: K57.30 Diverticulosis of large intestine without perforation or abscess without bleeding (principal)

== ENCOUNTER → 2021-07-07 | Outpatient (CLI) | payer BC ==
[~2021-07-07] MED LIST changes: +GASTROGRAFIN SOLUTION 30ML (Q9963) As Ordered ONE; +ISOVUE-370 76% 100ML VIAL As Ordered ONE
--- NOTE | 2021-07-07 15:45 | REP ---
INDICATION: DIVERTICULITIS. COMPARISON: 06/16/2021 TECHNIQUE: Standard helical technique after the intravenous administration of 100 cc Isovue 370. Oral bowel preparatory contrast was administered prior to the exam. FINDINGS: There is persistent fatty infiltration in the left mid abdomen and left lower quadrant from previously diagnosed diverticulitis seen on the prior exam. The tiny dots of free intraperitoneal air seen on the prior exam have resolved. Multiple contrast and gas filled dilated small bowel loops are again seen in the abdomen. There is no free fluid or free air. The liver, gallbladder, spleen, pancreas, adrenal glands, and kidneys are unchanged. The abdominal aorta and para aortic regions are unchanged. Bone window technique throughout the examination shows no change in the osseous structures. IMPRESSION: There is persistent inflammatory change in the left abdomen as described above and seen in conjunction with a small bowel ileus. <Electronically signed by Connor Ivory > 07/07/21 [id number]
== END ==
LOC: M RAD 13:31
PROVIDERS: ATTEND Surgery
DX: K57.30 Diverticulosis of large intestine without perforation or abscess without bleeding (principal)

== ENCOUNTER → 2021-10-26 | Outpatient (CLI) | payer BC ==
[2021-10-26 14:57] LABS: BASO % 0.2 % (0.0-1.0); EOS # 0.1 10^3/uL (0.0-0.5); EOS % 0.5 % (0.0-3.0); HEMATOCRIT 50.2 % (42.0-52.0); HEMOGLOBIN 16.5 g/dl (13.5-17.5); LYMPH # 3.7 10^3/uL (1.5-5.0); LYMPH % 22.2 % (24.0-44.0); MEAN CORPUSCULAR HGB CONC 32.9 g/dl (32.0-36.5); MEAN CORPUSCULAR VOLUME 88.2 fl (80.0-96.0); NEUTROPHILS # 11.7 10^3/uL (1.5-8.5); NEUTROPHILS % 70.7 % (36.0-66.0); PLATELET COUNT, AUTOMATED 247 10^3/uL (150-450); RED BLOOD COUNT 5.69 10^6/uL (4.30-6.10); WHITE BLOOD COUNT 16.6 10^3/uL (4.0-10.0)
[2021-10-26 15:33] LABS: ALT/SGPT 37 U/L (12-78); BILIRUBIN,TOTAL 0.8 MG/DL (0.2-1.0); BLOOD UREA NITROGEN 13 MG/DL (7-18); CALCIUM LEVEL 9.3 MG/DL (8.5-10.1); CARBON DIOXIDE LEVEL 26 MEQ/L (21-32); CHLORIDE LEVEL 107 MEQ/L (98-107); CREATININE FOR GFR 1.01 MG/DL (0.70-1.30); GLOMERULAR FILTRATION RATE > 60.0 (>60); GLUCOSE, FASTING 79 MG/DL (70-100); POTASSIUM SERUM 4.1 MEQ/L (3.5-5.1); SODIUM LEVEL 138 MEQ/L (136-145); TOTAL PROTEIN 7.6 GM/DL (6.4-8.2)
== END ==
LOC: M RAD 13:58
PROVIDERS: ATTEND Surgery
DX: K57.30 Diverticulosis of large intestine without perforation or abscess without bleeding (principal)

== ENCOUNTER → 2021-12-17 | Outpatient (CLI) | payer BC ==
[~2021-12-17] MED LIST changes: -GASTROGRAFIN SOLUTION 30ML (Q9963) As Ordered ONE; -ISOVUE-370 76% 100ML VIAL As Ordered ONE
== END ==
LOC: M LABSMTC 10:39
PROVIDERS: ATTEND Anesthesiology
DX: Z01.812 Encounter for preprocedural laboratory examination (principal); Z20.822 Contact with and (suspected) exposure to COVID-19

== ENCOUNTER 2021-12-22 10:03 | Day surgery (SDC) | payer BC ==
[~2021-12-22] VITALS: Ht 195.6 cm; Wt 102.7 kg
[~2021-12-22 10:03] MED LIST changes: +NS 1,000 ML IV ONE
[2021-12-22] MEDS ORDERED: LIDOCAINE 2% 100MG/5ML SDV (FOR ANES.) As Ordered ONE (11:00)
[2021-12-22] MEDS ORDERED: propofoL 200 MG/20 ML VIAL As Ordered ONE (11:00)
[2021-12-22 11:40] VITALS: BP 127/74
== END 2021-12-22 11:39 | disposition home or self-care (01) ==
LOC: M OPP 10:03
PROVIDERS: ATTEND Surgery
DX: K57.32 Diverticulitis of large intestine without perforation or abscess without bleeding (principal); K63.5 Polyp of colon; K57.30 Diverticulosis of large intestine without perforation or abscess without bleeding; F17.210 Nicotine dependence, cigarettes, uncomplicated; Z88.6 Allergy status to analgesic agent

== ENCOUNTER → 2022-05-16 | Outpatient (REF) | payer BC ==
[~2022-05-16] MED LIST changes: -NS 1,000 ML IV ONE
[2022-05-16 17:38] LABS: C REACTIVE PROTEIN QUANTITATIV 0.41 MG/DL (0.00-0.30); MAGNESIUM LEVEL 2.1 MG/DL (1.8-2.4); PHOSPHORUS LEVEL 4.1 MG/DL (2.5-4.9); THYROID STIMULATING HORMONE 1.62 uIU/ML (0.358-3.740)
== END ==
LOC: M SFHCRHEU 15:08
PROVIDERS: ATTEND Internal Medicine
DX: M79.10 Myalgia, unspecified site (principal); M25.40 Effusion, unspecified joint

== ENCOUNTER → 2022-10-04 | Outpatient (REF) | payer BC | LOC: M SFHCRHEU 11:44 | PROVIDERS: ATTEND Internal Medicine | DX: E55.9 Vitamin D deficiency, unspecified (principal) ==